=== PATIENT | male | born 1970 | race Caucasian/White ===

== ENCOUNTER 2025-07-17 16:03 | Emergency (ER) | payer MEDICAID, SELFPAY ==
--- OUTSIDE RECORDS SUMMARY | 2025-06-23 09:50 | XMS_ITS ---
Author Organization [facility] Address [address] [place] [phone] Care Team Providers Care New Accounts Representative Name Role Phone Zhane Marie [phone] REASON FOR VISIT Establish care Social History Sex Assigned At : Social History Observation Description Sex Assigned At Male Encounters Encounter Location Date Provider Diagnosis [facility] [address] [address] 06/23/2025 Zhane Marie Plan Of Treatment No Information Progress Notes * REJI, González SDOB:1970 (54 yo M)Acc No.[id number]:06/23/2025 Progress Notes Patient: González CHAN Provider: Adrián Marie :1970 A ge:54 Y S ex:Male Date:06/23/2025 Address:[place] Subjective: * Chief Complaints: * 1 . Establish care. * Medical History: Objective: * Vitals: Assessment: Plan: * Treatment: * Billing Information: * Visit Code: * Procedure Codes: * Electronic signature of VITA Louis [email or web address] on 07/17/2025 at 04:09 PM CDT Sign off status: Pending * Provider: Adrián Marie Date: 06/23/2025 Generated for Printi ng/Faxing/eTransmitting on: 07/17/2025 04:09 PM CDT
[2025-07-17 16:09] VITALS: BP 94/67; PULSE 79; RESP 18; TEMP 36.6; O2SAT 95; BMI 37.2
--- OUTSIDE RECORDS SUMMARY | 2025-07-17 16:09 | XMS_ITS | Encounter Summary ---
Author Organization [facility] Address [address] [place] [address] Care Team Providers Care Vasc Tech Name Role Phone Artem Bliss MD Primary Care Provider [phone] Reason for Visit * Reason Comments Provider Call Encounter Details Date Type Department Care Team (Late st Contact Info) Description 01/30/2025 Telephone [facility] Medicine- [address] [place] [address] Padmini Raysa Adilia, STATIONARY STEAM ENGINEER [address] [facility] [address] [place] [address] Provider Call Social History Tobacco Use Types Packs/Day Years Used Date Smoking Tobacco: Former Cigarettes 1.5 5 0 11/06/2013 - 11/06/2018 Smokeless Tobacco: Current Chew Alcohol Use Standard Drinks/Week Comments No 0 (1 standard drink = 0.6 oz pur e alcohol) Feeling Safe Answer Date Recorded Are you in a relationship wi th someone who hurts you emotionally and/or physically? 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 Topic: Ffiwmcbz-Go-Dfmpwztl Call >> Jan 30, 2025 3:05 PM Claudine James wrote: Caller is requesting to speak with Clinical Care Team. Caller Name: Mirian ([facility]) Callback Number: [phone] Clinician Type: Home Health Co-worker Call Notes: Caller states that she would like to let the patient's care team that he has 3-4 pitting edema on his right leg and at least 3+ pitting edema on his left leg. She also reports that he hashad increased swelling in his feet since his spironolactone was discontinued. Caller would like a call back please. Is this addressing an immediate patient care need? No documented in this encounter Plan of Treatment Upcoming Encounters Date Type Department Care Team (Late st Contact Info) Description 08/04/2025 2:00 PM CDT App[facility]ment [facility] [address] [place] [address] Suzette Bernardo DO [address] [place] [address] 08/04/2025 2:00 PM CDT Appointment [facility] Oncology [facility] [address] [place] [address] Suzette Bernardo DO [address] [place] [phone] 080- 08/07/2025 1:20 PM CDT Office Visit [facility] Cancer and H[facility] [place] [address] [place] [address] Suzette Bernardo, DO [address] [place] [address] 09/26/2025 11:00 AM INFORMATION DEVELOPER Office Visit [facility] [address] [address] Luz Elena Gallagher, [facility] [address] [address] documented as of this encounter Visit Diagnoses Not on filedocumented in this encounter Care Teams Vasc Tech Relationship Specialty Start Date End Date Artem Bliss MD [address] [address] PCP - General Family Practice 03/12/25 documented as of this encounter
--- OUTSIDE RECORDS SUMMARY | 2025-07-17 16:09 | XMS_ITS | Patient Health Record ---
Author Organization [facility] Address [address] [address] Care Team Providers Care Incident Response Coordinator Name Role Phone Zhane Marie Unavailable [phone] Allergies No Known Allergies Results Component Value Reference Range Notes TSH W/REFLEX TO FT4 (53239) Reviewed date:07/05/2025 03:30:06 PM Interpretation: Performing Lab:[facility] Amna-[id number] [address], LcepscAT[address] Denisse Chen MD Notes/Report: 0 0 0 0 0 0 0 TSH W/REFLEX TO FT4 1.64 0.40-4.50 mIU/L HEMOGLOBIN A1c (496) Reviewed date:07/05/2025 03:30:06 PM Interpretation: Performing Lab:[facility] ENRIQUEZ-Dluxux13946 Roxana Talavera[address] Denisse Chen MD Notes/Report: 0 0 0 0 0 0 0 HEMOGLOBIN A1c 5.8 <5.7 % For someone without known diabetes, a hemoglobin A1c value between 5.7% and 6.4% is consistent with prediabetes and should be confirmed with a follow-up test. For someone with known diabetes, a value <7% indicates that their diabetes is well controlled. A1c targets should be individualized based on duration of diabetes, age, comorbid conditions, and other considerations. This assay result is consistent with an increased risk of diabetes. Currently, no consensus exists regarding use of hemoglobin A1c for diagnosis of diabetes for children. CBC (INCLUDES DIFF/PLT) (099 9) Reviewed date:07/05/2025 03:30:06 PM Interpretation: Performing Lab:[facility]-[id number] [address], HqfhreUV[address] Denisse Chen MD Notes/Report: 0 0 0 0 0 0 0 WHITE BLOOD CELL COUNT 5.6 3.8-10.8 Thousand/ uL RED BLOOD CELL COUNT 4.86 4.20-5.80 Million/uL HEMOGLOBIN 14.7 13.2-17.1 g/dL HEMATOCRIT 44.4 38.5-50.0 % MCV 91.4 80.0-100.0 fL MCH 30.2 27.0-33.0 pg MCHC 33.1 32.0-36.0 g/dL For adults, a slight decrease in the calculated MCHC value (in the range of 30 to 32 g/dL) is most likely not clinically significant; however, it should be interpreted with caution in correlation with other red cell parameters and the patient's clinical condition. RDW 14.4 11.0-15.0 % PLATELET COUNT 183 140-400 Thousand/uL MPV 10.6 7.5-12.5 fL ABSOLUTE NEUTROPHILS 3993 2203-5307 cells/uL ABSOLUTE LYMPHOCYTES 5667 657-0144 cells/uL ABSOLUTE MONOCYTES 252 200-950 cells/uL ABSOLUTE EOSINOPHILS 28 15-500 cells/uL ABSOLUTE BASOPHILS 22 0-200 cells/uL NEUTROPHILS 71.3 LYMPHOCYTES 23.3 MONOCYTES 4.5 EOSINOPHILS 0.5 BASOPHILS 0.4 COMPREHENSIVE METABOLIC PANE (85676) Reviewed date:07/05/2025 03:30:06 PM Interpretation: Performing Lab:[facility] ENRIQUEZ-Hemthh03823 [address], BebmjrYJ[address] Denisse Chen MD Notes/Report: 0 0 0 0 0 0 0 GLUCOSE 105 65-99 mg/dL Fasting reference interval For someone without known diabetes, a glucose value between 100 and 125 mg/dL is consistent with prediabetes and should be confirmed with a follow-up test. UREA NITROGEN (BUN) 17 7-25 mg/dL CREATININE 0.91 0.70-1.30 mg/dL EGFR 101 > OR = 60 mL/min/1.73m2 BUN/CREATININE RATIO SEE NOTE: 6-22 (calc) Not Reported: BUN and Creatinine are within reference range. SODIUM 138 135-146 mmol/L POTASSIUM 4.1 3.5-5.3 mmol/L CHLORIDE 104 98-110 mmol/L CARBON DIOXIDE 25 20-32 mmol/L CALCIUM 9.1 8.6-10.3 mg/dL PROTEIN, TOTAL 7.0 6.1-8.1 g/dL ALBUMIN 4.2 3.6-5.1 g/dL GLOBULIN 2.8 1.9-3.7 g/dL (calc) ALBUMIN/GLOBULIN RATIO 1.5 1.0-2.5 (calc) BILIRUBIN, TOTAL 0.4 0.2-1.2 mg/dL ALKALINE PHOSPHATASE 104 35-144 U/L AST 11 10-35 U/L ALT 17 9-46 U/L IRON, TIBC AND FERRITIN PANE L (5616) Reviewed date:07/05/2025 03:30:06 PM Interpretation: Performing Lab:[facility]-[id number] [address] Jo, VydifgSR[address] Denisse Chen MD Notes/Report: 0 0 0 0 0 0 0 IRON, TOTAL 75 50-180 mcg/dL IRON BINDING CAPACITY 290 250-425 mcg/dL (angelique c) % SATURATION 26 20-48 % (calc) FERRITIN 185 38-380 ng/mL ALBUMIN, RANDOM URINE W/CREA TININE (6517) Reviewed date:07/05/2025 03:30:06 PM Interpretation: Performing Lab:[facility] Amna-[id number] [address] [id number] Denisse Chen MD Notes/Report: 0 0 0 0 0 0 0 CREATININE, RANDOM URINE 77 20-320 mg/dL ALBUMIN, URINE <0.2 See Note: mg/dL Reference Range: Reference Range Not established ALBUMIN/CREATININE RATIO, RANDOM URINE NOTE <30 mg/g creat NOTE: The urine albumin value is less than 0.2 mg/dL therefore we are unable to calculate excretion and/or creatinine ratio. The ADA defines abnormalities in albumin excretion as follows: Albuminuria Category Result (mg/g creatinine) Normal to Mildly increased <30 Moderately increased 30-299 Severely increased > OR = 300 The ADA recommends that at least two of three specimens collected within a 3-6 month period be abnormal before considering a patient to be within a diagnostic category. LIPID PANEL, STANDARD (5030) Reviewed date:07/05/2025 03:30:06 PM Interpretation: Performing Lab:[place], [facility]-[id number], AgdsooFR[address] Denisse Chen MD Notes/Report: 0 0 0 0 0 0 0 CHOLESTEROL, TOTAL 86 <200 mg/dL HDL CHOLESTEROL 36 > OR = 40 mg/dL TRIGLYCERIDES 162 <150 mg/dL LDL-CHOLESTEROL 26 Reference range: <100 Desirable range <100 mg/dL for primary prevention; <70 mg/dL for patients with CHD or diabetic patients with > or = 2 CHD risk factors. LDL-C is now calculated using the Christopher-Lazo calculation, which is a validated novel method providing better accuracy than the Friedewald equation in the estimation of LDL-C. Christopher SS et al. ZARIA. 2013;310(26): 2445-2338 (http://education.Babybe/faq/DLY873) CHOL/HDLC RATIO 2.4 <5.0 (calc) NON HDL CHOLESTEROL 50 <130 mg/dL (calc) For patients with diabetes plus 1 major ASCVD risk factor, treating to a non-HDL-C goal of <100 mg/dL (LDL-C of <70 mg/dL) is considered a therapeutic option. Reason For Referral Reason [facility] cardiology Diagnosis 1 Hypertensive heart d isease with congestive heart failure, unspecified heart failure type (I11.0) Referral [facility] [facility] Referring Provider First Name Zhane Referring Provider Last Name Burns Referring Provider [facility] Referred Provider [facility] Notes Lissette De Los Santos 2024 08:31:12 AM >Insurance and ID attached. Waiting on lab report prior to faxing.Filiberto Wendy 07/08/2025 10:57:59 AM >Labs attached. Referral faxed.Filiberto Wendy 07/16/2025 11:34:21 AM >Attempt TC to [facility] Cardio. Left message to return my call.Filiberto Wendy 07/16/2025 02:21:41 PM >TC from Leann reyes/ [facility] Heart & Lung. Message left they've tried to call pt w/ no returned call.Filiberto Wendy 07/16/2025 02:24:09 PM >TC to pt. Provided him the number to [facility] Cardio to call and schedule the appt.Filiberto Wendy 07/17/2025 03:45:41 PM >TC to Alexandra reyes/ [facility] support. Confirmed appt 09/04/25 at 2:30 pm. Pt notified of appt by their clinic. Referral Priority Routine Referral Appointment Date 09/04/2025 Medications Medication SIG (Take, Route, Frequency, Duration) Notes Start Date End Date Status tiZANidine HCl 4 MG 1 tablet at bedtime as needed Orally every 8 hours Active GaviLyte-N with Flavor Pack 420 GM MIX ACCORDING TO INSTRUCTION THEN DRINK 1/2 THE EVENING PRIOR TO PROCEDURE AND REMAINING 1/2 THE MORNING OF PROCEDURE. MUST BE COMPLETED 2 HOURS BEFORE PROCEDURE. Oral; Duration: 2 Days Not-Taking SEROquel 100 MG 1 tablet Orally at bedtime Active Symbicort 160-4.5 MCG/ACT 2 puffs Inhalation twice a day; Duration: 30 days Active Pantoprazole Sodium 40 MG TAKE 1 TABLET BY MOUTH ONCE DAILY Oral; Duration: 30 Days Active Albuterol Sulfate HFA 108 (90 Base) MCG/ACT 2 puff as needed for cough/wheezing/or congestin Inhalation every 4 hrs; Duration: 30 days As needed Active Potassium Chloride ER 10 MEQ TAKE 4 CAPSULES BY MOUTH 2 TIMES DAILY Oral; Duration: 30 Days Active traZODone HCl 50 MG TAKE 1 TABLET BY MOUTH AT BEDTIME NEEDED FOR SLEEP DISTURBANCE Oral; Duration: 30 Days Not-Taking Dexcom G7 Sensor - FOR CONTINUOUS BLOOD GLUCOSE MONITORING. CHANGE EVERY 10 DAYS.; Duration: 30 days Active metFORMIN HCl 500 MG TAKE 1 TABLETS BY MOUTH TWICE DAILY WITH MEALS Oral Active FeroSul 325 (65 Fe) MG 1 tablet Orally daily; Duration: 30 days Active Metoprolol Succinate ER 25 MG TAKE 1 TABLET BY MOUTH ONCE DAILY Oral; Duration: 30 Days Active Furosemide 40 MG TAKE 1 TABLET BY MOUTH ONCE DAILY Oral; Duration: 30 Days Active Insulin Lispro (1 Unit Dial) 100 UNIT/ML as directed Subcutaneous 3 times a day before meals; Duration: 30 days As needed Blood glucose: 151-200 Give 1 unit subcutaneous 201-250 Give 2 units subcutaneous 251-300 Give 3 units subcutaneous 301-350 Give 4 units subcutaneous 351-400 Give 6 units subcutaneous MDD 25 units Active hydrOXYzine HCl 50 MG TAKE 1 TABLET BY MOUTH THREE TIMES DAILY NEEDED Oral; Duration: 30 Days Active Narcan 4 MG/0.1ML as directed Nasally Active Ranolazine ER 500 MG TAKE 1 TABLET BY MOUTH EVERY 12 HOURS Oral; Duration: 30 Days Active Albuterol Sulfate (2.5 MG/3ML) 0.083% 3 mL as needed Inhalation every 6 hrs As needed Active risperiDONE 1 MG TAKE 1 TABLET BY MOUTH TWICE DAILY Oral; Duration: 30 Days Active Sertraline HCl 100 MG 2 tablets Oral daily; Duration: 30 days Active Ondansetron 4 MG 1 tablet on the tongue and allow to dissolve Orally every 8 hours As needed Active traZODone HCl 100 MG TAKE 1 TABLET BY MOUTH AT BEDTIME Oral; Duration: 30 Days Active Pregabalin 100 MG TAKE 1 CAPSULE BY MOUTH EVERY 12 HOURS Oral; Duration: 30 Days Active Dicyclomine HCl 20 MG 1 tablet Orally 4 times a daily before meals and at bedtime Active clonazePAM 0.5 MG 1 tablet Orally twice a day Active Trulicity 4.5 MG/0.5ML INJECT 1 ONCE A WEEK Subcutaneous; Duration: 30 days [facility] Active Dexcom G7 Solar Energy Advisor - USE DIRECTED FOR CONTINUOUS BLOOD GLUCOSE MONITORING; Duration: 15 Days Active Ascorbic Acid 250 MG 1 tablet Orally Onc e a day Active Glucagon 3 MG/DOSE as directed for low blood sugar Nasally 06/23/2025 Active Atorvastatin Calcium 80 MG TAKE 1 TABLET BY MOUTH ONCE DAILY IN THE EVENING Oral; Duration: 30 Days Active OneTouch Ultra Test - USE 1 STRIP TO FLO CK GLUCOSE THREE TIMES DAILY In Vitro; Duration: 34 Days Active Eliquis 5 MG TAKE 1 TABLET BY MOUTH TWICE DAILY Oral; Duration: 30 Days Active traMADol HCl 50 MG TAKE 1 TABLET BY MOUTH EVERY 8 HOURS NEEDED FOR PAIN Oral; Duration: 10 Days Active ARIPiprazole 20 MG TAKE 1 TABLET BY MOUTH AT BEDTIME FOR DEPRESSION Oral; Duration: 30 Days Active Pentips Generic Pen Burd[place] 31G X 5 MM 1 FIVE TIMES DAILY WITH INSULIN; Duration: 20 Days Active Farxiga 10 MG TAKE 1 TABLET BY MOUTH ONCE DAILY Oral Active Fenofibrate 145 MG 1 tablet Orally Once a day Active DULoxetine HCl 30 MG 1 capsule Orally twice a day Active EPINEPHrine 0.3 MG/0.3ML INJECT CONTENTS OF 1 PEN NEEDED FOR ALLERGIC REACTION Injection; Duration: 2 Days Active Social History Tobacco Use: Social History Observation Description Date Details (start date - stop date) Unknown Sex Assigned At : Social History Observation Description Sex Assigned At Male Tobacco Control (Standard) Question Answer Notes Tobacco use: Uses tobacco in other forms Additional Findings: Tobacco user Chews tobacco Problems Problem Type SNOMED Code ICD Code Onset Dates Problem Status W/U Status Risk Notes Problem Peripheral circulatory disorder associated with diabetes mellitus (878873633) Type 2 diabetes mellitus with other circulatory complications (E11.59) Active confirmed Problem Long-term current use of insulin (438514080) 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) Active confirmed Problem Exacerbation of intermittent asthma (945042161) Mild intermittent asthma with exacerbation (J45.21) Active confirmed Problem Iron deficiency anemia (62561922) Iron deficiency anemia, unspecified iron deficiency anemia type (D50.9) Active confirmed Problem Hypertensive heart failure (53807399) Hypertensive heart disease with congestive heart failure, unspecified heart failure type (I11.0) Active confirmed Problem Heart failure (36502247) Chronic congestive heart failure, unspecified heart failure type (I50.9) Active confirmed Vital Signs Heart Rate 78 /min 07/17/2025 Temperature 97.1 degrees Fahrenheit 07/17/2025 Oximetry 98 % 07/17/2025 Blood pressure diastolic 78 mm Hg 07/17/2025 Weight-kg 95.44 kg 07/17/2025 Blood pressure systolic 122 mm Hg 07/17/2025 Weight 210.4 lbs 07/17/2025 Encounters Encounter Location Date Provider Diagnosis [facility] [employer] [facility] [address] [place] [address] 07/17/2025 Zhane Marie [facility] [employer] [facility] [address] [place] [address] 06/23/2025 Zhane Marie Acute URI J06.9 ; Ty pe 2 diabetes mellitus with other circulatory complications E11.59 ; 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 Z79.4 and Chronic congestive heart failure, unspecified heart failure type I50.9 [facility] [employer] [facility] [address] [place] [address] 06/24/2025 Zhane Marie Hypertensive heart disease with congestive heart failure, unspecified heart failure type I11.0 ; Type 2 diabetes mellitus with other circulatory complications E11.59 ; Chronic congestive heart failure, unspecified heart failure type I50.9 ; Acute URI J06.9 ; skilled nursing (current) use of insulin Z79.4 ; Mild intermittent asthma with exacerbation J45.21 and Iron deficiency anemia, unspecified iron deficiency anemia type D50.[address] [address] 07/02/2025 Zhane Marie Type 2 diabetes mellitus with other circulatory complications E11.59 and Iron deficiency anemia, unspecified iron deficiency anemia type D50.[address] [address] 06/25/2025 Zhane Marie Type 2 diabetes mellitus with other circulatory complications E11.59 Assessments Encounter Date Diagnosis (ICD Code) Assessment Notes Treatment Notes Treatment Clinical Notes Section Notes 06/23/2025 Type 2 diabetes mellitus with other circulatory complications (ICD-10 - E11.59) 06/23/2025 Acute URI (ICD-10 - J06.9) 06/24/2025 Type 2 diabetes mellitus with other circulatory complications (ICD-10 - E11.59) 06/24/2025 Hypertensive heart disease with congestive heart failure, unspecified heart failure type (ICD-10 - I11.0) 06/25/2025 Type 2 diabetes mellitus with other circulatory complications (ICD-10 - E11.59) 07/02/2025 Type 2 diabetes mellitus with other circulatory complications (ICD-10 - E11.59) labs drawn by Kristine Linder LPN 07/02/2025 Iron deficiency anemia, unspecified iron deficiency anemia type (ICD-10 - D50.9) 06/24/2025 Chronic congestive heart failure, unspecified heart failure type (ICD-10 - I50.9) 06/23/2025 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 Hold the Toujeo since his blood sugars have been running so low 06/24/2025 Other He has lost about 50 pounds in the past 8 months. We will discontinue his Toujeo We will decrease his sliding scale to low-dose May need to decrease his furosemide if lightheadedness and/or low blood pressure is a problem. He will follow-up with oncology due to his history of colon cancer He will follow-up with [facility] for his psychiatric care He wishes to have his diabetes managed here in his primary care clinic We we will refer him to cardiology Plan Of Treatment No Information Insurance Providers Payer Name Payer Address Payer Phone Subscriber Number Group Number Insured Name Patient Relationship to Insured Coverage Start Date Coverage End Date Medicaid [address] [place] [address] [id number] González Mendoza Self - patient is the insured 5 Medical (General) History Medical History History ICD Code diabetes heart failure. 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 Agnes blum manages asthma hx of PE x2 colon cancer 2019 bowel resection and ch emo. [facility] q6[facility] [place] in 30s anemia since 2022. oncology follows glaucoma. dr vila neuropathy
--- OUTSIDE RECORDS SUMMARY | 2025-07-17 16:09 | XMS_ITS | Encounter Summary ---
Author Organization [facility] Address [address] [place] [address] Care Team Providers Care Chin Strap Cutter Name Role Phone Perla Maradiaga MD, Irineo Amanda Primary Care Provider +1- [phone] Encounter Details Date Type Department Care Team (Late st Contact Info) Description 08/31/2008 Outpatient Historical HIS IN BED Sj Ed, Physician NO ADDRESS ON FILE Keenan Brown MD NO ADDRESS ON FILE Janet Watts MD [address] [facility] [address] [place] [address] Syncope and Collapse; DM w/o Complication Type II (CMS/HCC); No Proc/Contraindication Social History Tobacco Use Types Packs/Day Years Used Date Smoking Tobacco: Never Assessed Sex and Gender Information Value Date Recorded Sex Assigned at Not on file 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 Gender Identity Not on file Sexual Orientation Not on file documented as of this encounter Plan of Treatment Not on file documented as of this encounter Procedures Procedure Name Priority Date/Time Associated Diagnosis Comments CARDIAC ENZYMES Routine 09/01/2008 2:00 AM CDT CARDIAC ENZYMES Routine 08/31/2008 8:39 PM CDT XR CHEST PA OR AP 1 VW Routine 08/31/2008 2:[address] HEAD WO CONTRAST Routine 08/31/2008 2 :11 PM CDT CARDIAC ENZYMES Stat 08/31/2008 1:55 PM CDT CBC WITH DIFFERENTIAL Stat 08/31/2008 1:55 PM CDT PTT Stat 08/31/2008 1:55 PM CDT PROTIME-INR Stat 08/31/2008 1:55 PM CDT BASIC METABOLIC PANEL Stat 08/31/2008 1:55 PM CDT documented in this encounter Results * CARDIAC ENZYMES (09/01/2008 2:00 AM CDT) CKMB 1.7 0.0 - 5.0 ng/mL [facility] TROPONIN I <0.1 0.0 - 1.3 ng/mL [facility] Blood specimen (specimen) 09/01/2008 2:00 AM CDT 09/01/2008 2:28 AM CDT Keenan Brown MD CHEMISTRY ORDERABLES Final Result INTERFACE SYSTEM Refer to clinic/hospital department [facility]# [id number] [address] [place] [address] * CARDIAC ENZYMES (08/31/2008 8:39 PM CDT) CKMB 1.6 0.0 - 5.0 ng/mL [facility] TROPONIN I <0.1 0.0 - 1.3 ng/mL [facility] Blood specimen (specimen) 08/31/2008 8:39 PM CDT 08/31/2008 8:39 PM CDT Keenan Brown MD CHEMISTRY ORDERABLES Final Result INTERFACE SYSTEM Refer to clinic/hospital department [facility] CLIA# [id number] Critical access hospital [place] [address] * XR CHEST PA OR AP (08/31/2008 2:29 PM CDT) Anatomical Region Laterality Modality Chest Other 08/31/2008 2:29 PM CDT Narrative 08/31/2008 2:51 PM CDT A portable chest at 1417 was obtained. Heart size is normal. There is no pneumothorax and no focal airspace opacity or effusion. Vascularity is within normal limits. Incidental note is made of a medical and scientific illustrator in the patient's left breast pocket. Impression: No active pulmonary disease. - Dictated By: Eva Kramer M.D. Electronically Signed By: Eva Kramer M.D. Date Signed: 08/31/08 Procedure Note Eva Kramer - 08/31/2008 A portable chest at 1417 was obtained. Heart size is normal. There is no pneumothorax and no focal airspaceopacity or effusion. Vascularity is within normal limits. Incidental note is made of a medical and scientific illustrator in thepatient's left breast pocket. Impression: No active pulmonary disease. - Dictated By: Eva Kramer M.D. Electronically Signed By: Eva Kramer M.D. Date Signed: 08/31/08 Keenan Brown MD DIAGNOSTIC IMAGING ORDERAB LES Final Result * CT HEAD WO CONTRAST (08/31/2008 2:11 PM CDT) Anatomical Region Laterality Modality Head Other 08/31/2008 2:11 PM CDT Narrative 08/31/2008 2:[address] was performed without contrast. There is no acute hemorrhage or extra-axial fluid and there is no edema or mass effect. The ventricular size is appropriate. Patchy mucosal thickening is noted in the maxillary and ethmoidal sinuses. The mastoid air cells are clear and the bony calvarium is intact. Impression: Sinus disease. Otherwise no acute abnormality. - Dictated By: Eva Kramer M.D. Electronically Signed By: Eva Kramer M.D. Date Signed: 08/31/08 Procedure Note Eva Kramer - 08/31/[address] was performed without contrast. There is no acute hemorrhage or extra-axial fluid and there is no edema ormass effect. The ventricular size is appropriate. Patchy mucosal thickening is noted in the maxillaryand ethmoidal sinuses. The mastoid air cells are clear and the bony calvarium is intact. Impression: Sinus disease. Otherwise no acute abnormality. - Dictated By: Eva Kramer M.D. Electronically Signed By: Eva Kramer M.D. Date Signed: 08/31/08 us Keenan Brown MD CT ORDERABLES Final Resu lt * BASIC METABOLIC PANEL (08/31/2008 1:55 PM CDT) POTASSIUM 3.9 3.5 - 5.0 mEq/L [facility] OSMOLALITY, CALCULATED 288 275 - 295 mOsm/Kg [facility] CREATININE 0.9 0.7 - 1.5 mg/dL [facility] CALCIUM 10.2 8.4 - 10.5 mg/dL [facility] GLUCOSE 96 70 - 110 mg/dL [facility] CHLORIDE 107 95 - 110 mEq/L [facility] ANION GAP 9 9 - 20 mEq/L [facility] SODIUM 140 136 - 145 mEq/L [facility] BUN 15 9 - 20 mg/dL [facility] CO2 28 22 - 32 mmol/l [facility] Blood specimen (specimen) 08/31/2008 1:55 PM CDT 08/31/2008 2:02 PM CDT us Keenan Brown MD CHEMISTRY ORDERABLES Final Result INTERFACE SYSTEM Refer to clinic/hospital department [facility] CLIA# [id number] [address] [facility] [place] [address] * (ABNORMAL) CBC WITH DIFFERENTIAL (08/31/2008 1:55 PM CDT) WBC 6.6 4.5 - 11.0 K/ul [facility] MCH 30.5 27.0 - 34.0 pg [facility] NEUTROPHIL ABSOLUTE 4.1 2.0 - 8.0 K/ul [facility] NEUTROPHILS 62.4 42.2 - 75.2 % [facility] HEMATOCRIT 44.3 41.0 - 53.0 % [facility] EOSINOPHILS 0.8 0.0 - 7.0 % [facility] PLATELETS 200 140 - 440 K/ul [facility] EOSINOPHIL ABSOLUTE 0.1 0.0 - 0.7 K/ul [facility] RBC 5.15 4.60 - 6.20 Mil/ul [facility] LYMPHOCYTES 29.0 24.0 - 44.0 % [facility] MCHC 35.4(H) 30.0 - 35.0 g/dL [facility] LYMPHOCYTE ABSOLUTE 1.9 1.2 - 4.0 K/ul [facility] MCV 86.0 84.0 - 103.0 Fl [facility] MPV 11.1 8.9 - 12.8 Fl [facility] BASOPHILS ABSOLUTE 0.0 0.0 - 0.2 K/ul [facility] BASOPHILS 0.2 0.0 - 1.0 % [facility] HEMOGLOBIN 15.7 14.0 - 18.0 g/dL [facility] RDW 13.0 11.0 - 14.5 % [facility] MONOCYTE ABSOLUTE 0.5 0.1 - 0.6 K/ul [facility] MONOCYTES 7.6 2.0 - 10.0 % [facility] Blood specimen (specimen) 08/31/2008 1:55 PM CDT 08/31/2008 2:02 PM CDT Keenan Brown MD HEMATOLOGY ORDERABLES Elva l Result Performing Organization Address [facility] de Phone Number INTERFACE SYSTEM Refer to clinic/hospital department [facility] CLIA# [id number] [facility] [place] [address] * PTT (08/31/2008 1:55 PM CDT) PTT 27.5 22.5 - 36.5 Secs [facility] Comment: Therapeutic Range: Hi-level PE/DVT heparin protocol 80.1 -95.0 sec Lo-level PE/DVT heparin protocol 67.1 - 80.0 sec Cardiac Heparin Protocol 67.1 - 85.0 sec Neuro Heparin Protocol 67.1 - 80.0 sec As of 01/24/2008 note change in APTT Normal Range. Blood specimen (specimen) 08/31/2008 1:55 PM CDT 08/31/2008 2:02 PM CDT Keenan Brown MD HEMATOLOGY ORDERABLES Elva l Result Performing Organization Address [facility] Phone Number INTERFACE SYSTEM Refer to clinic/hospital department [facility] CLIA# [id number] [address] [place] [address] * PROTIME-INR (08/31/2008 1:55 PM CDT) PROTIME 13.6 12.8 - 15.8 Secs [facility] Comment:As of 2007 not e change in normal range. INR 0.9 [facility] Comment: Expected Values for INR: DVT/PE Goal INR 2.5; range 2.0 - 3.0 Valve Replacement Tissue Goal INR 2.5; range 2.0 - 3.0 Mechanical Goal INR 3.0; range 2.5 - 3.5 POST-NM Goal INR 2.5; range 2.0 - 3.0 or Goal 3.0; range 2.5 - 3.5 Atrial Fibrillation Goal INR 2.5; range 2.0 - 3.0 Ischemic Stroke Goal INR 2.5; range 2.0 - 3.0 For additional information see Guidelines for Anticoagulation available from the pharmacy [facility]. [phone] Blood specimen (specimen) 08/31/2008 1:55 PM CDT 08/31/2008 2:02 PM CDT us Keenan Brown MD HEMATOLOGY ORDERABLES Elva l Result Performing Organization Address [facility] Phone Number INTERFACE SYSTEM Refer to clinic/hospital department [facility] CLIA# [id number] [address] [place] [address] * CARDIAC ENZYMES (08/31/2008 1:55 PM CDT) CKMB 1.8 0.0 - 5.0 ng/mL [facility] TROPONIN I <0.1 0.0 - 1.3 ng/mL [facility] Blood specimen (specimen) 08/31/2008 1:55 PM CDT 08/31/2008 2:02 PM CDT us Keenan Brown MD CHEMISTRY ORDERABLES Final Result Performing Organization Address [facility] Number INTERFACE SYSTEM Refer to clinic/[facility] CLIA# [id number] [address] [place] [address] documented in this encounter Visit Diagnoses Diagnosis Syncope and collapse Type II or unspecified type diabetes mellitus without mention of complication, not stated as uncontrolled Surgical or other procedure not carried out because of contraindication documented in this encounter Additional Health Concerns Infection Onset Date Last Indicated Resolved Time C Diff 06/26/2020 06/26/2020 08/25/2020 8:08 PM CDT R/O COVID-19 09/11/2020 09/11/2020 09/11/2020 10:5 3 AM ASSOCIATE PROGRAMMER ANALYST R/O COVID-19 11/17/2020 11/17/2020 11/17/2020 4:58 PM ASSOCIATE PROGRAMMER ANALYST documented as of this encounter Care Teams Chin Strap Cutter Relationship Specialty Start Date End Date Irineo Duncan Jr., MD [address] [place] [address] [address] [facility] [address] [place] [phone] PCP - General Family Practice 06/20/19 documented as of this encounter
--- OUTSIDE RECORDS SUMMARY | 2025-07-17 16:09 | XMS_ITS | Encounter Summary ---
Author Organization [facility] Address [address] [place] [address] Care Team Providers Care Slurry Blender Name Role Phone Perla Maradiaga MD, Irineo Amanda Primary Care Provider [phone]- [phone] Encounter Details Date Type Department Care Team (Latest Contact Info) Description 08/22/2008 Outpatient Historical [facility] Cardiac Retread Mold Operator [address] [place] [address] Janet Watts MD [address] [facility] [address] [place] [address] Syncope and Collapse Social History Tobacco Use Types Packs/Day Years Used Date Smoking Tobacco: Never Assessed Sex and Gender Information Value Date Recorded Sex Assigned at Not on file Legal Sex Male 6:57 AM CELLAR HAND Gender Identity Not on file Sexual Orientation Not on file documented as of this encounter Plan of Treatment Not on file documented as of this encounter Procedures Procedure Name Priority Date/Time Associated Diagnosis Comments PT AND APTT Stat 08/27/2008 6:57 AM CDT CBC WITHOUT DIFFERENTIAL Stat 08/27/2008 6:57 AM CDT BASIC METABOLIC PANEL Stat 08/27/2008 6:57 AM CDT documented in this encounter Results * BASIC METABOLIC PANEL (08/27/2008 6:57 AM CDT) Pathologist [facility] POTASSIUM 4.1 3.5 - 5.0 mEq/L [facility] Comment: Specimen slightly hemolyzed OSMOLALITY, CALCULATED 288 275 - 295 mOsm/Kg [facility] CREATININE 1.0 0.7 - 1.5 mg/dL [facility] CALCIUM 9.4 8.4 - 10.5 mg/dL [facility] GLUCOSE 98 70 - 110 mg/dL [facility] CHLORIDE 108 95 - 110 mEq/L [facility] ANION GAP 10 9 - 20 mEq/L [facility] SODIUM 140 136 - 145 mEq/L [facility] BUN 14 9 - 20 mg/dL [facility] CO2 26 22 - 32 mmol/l [facility] Blood specimen (specimen) 08/27/2008 6:57 AM CDT 08/27/2008 6:57 AM CDT us Janet Watts MD CHEMISTRY ORDERABLES Final Re sult INTERFACE SYSTEM Refer to clinic/hospital department [facility] CLIA# [id number] [address] [place] [address] * CBC WITHOUT DIFFERENTIAL (08/27/2008 6:57 AM CDT) Pathologist [facility] WBC 7.9 4.5 - 11.0 K/ul [facility] HEMATOCRIT 41.0 41.0 - 53.0 % [facility] RBC 4.77 4.60 - 6.20 Mil/ul [facility] PLATELETS 187 140 - 440 K/ul [facility] HEMOGLOBIN 14.5 14.0 - 18.0 g/dL [facility] Blood specimen (specimen) 08/27/2008 6:57 AM CDT 08/27/2008 6:57 AM CDT us Janet Watts MD HEMATOLOGY ORDERABLES Final R esult Performing Organization Address City/[facility] Co de Phone Number INTERFACE SYSTEM Refer to clinic/hospital department [facility] CLIA# [id number] [address] [place] [address] * (ABNORMAL) PT AND APTT (08/27/2008 6:57 AM CDT) PROTIME 12.6(L) 12.8 - 15.8 Secs [facility] Comment:As of 2007 not e change in normal range. INR 0.8 [facility] Comment: Expected Values for INR: DVT/PE Goal INR 2.5; range 2.0 - 3.0 Valve Replacement Tissue Goal INR 2.5; range 2.0 - 3.0 Mechanical Goal INR 3.0; range 2.5 - 3.5 POST-PA Goal INR 2.5; range 2.0 - 3.0 or Goal 3.0; range 2.5 - 3.5 Atrial Fibrillation Goal INR 2.5; range 2.0 - 3.0 Ischemic Stroke Goal INR 2.5; range 2.0 - 3.0 For additional information see Guidelines for Anticoagulation available from the pharmacy [facility]. [phone] PTT 27.3 22.5 - 36.5 Secs [facility] Comment: Therapeutic Range: Hi-level PE/DVT heparin protocol 80.1 -95.0 sec Lo-level PE/DVT heparin protocol 67.1 - 80.0 sec Cardiac Heparin Protocol 67.1 - 85.0 sec Neuro Heparin Protocol 67.1 - 80.0 sec As of 01/24/2008 note change in APTT Normal Range. Blood specimen (specimen) 08/27/2008 6:57 AM CDT 08/27/2008 6:57 AM CDT us Janet Watts MD HEMATOLOGY ORDERABLES Edited Performing Organization Address City/[facility] Co de Phone Number INTERFACE SYSTEM Refer to clinic/hospital department [facility] CLIA# [id number] [address] [place] [address] documented in this encounter Visit Diagnoses Diagnosis Syncope and collapse documented in this encounter Additional Health Concerns Infection Onset Date Last Indicated Resolved Time C Diff 06/26/2020 06/26/2020 08/25/2020 8:08 PM CDT R/O COVID-19 09/11/2020 09/11/2020 09/11/2020 10:5 3 AM CELLAR HAND R/O COVID-11/17/2020 11/17/2020 11/17/2020 4:58 PM CELLAR HAND documented as of this encounter Care Teams Slurry Blender Relationship Specialty Start Date End Date Irineo Duncan Jr., MD [address] [place] [address] [address] [place] [phone] PCP - General Family Practice 06/20/19 documented as of this encounter
--- OUTSIDE RECORDS SUMMARY | 2025-07-17 16:09 | XMS_ITS | Encounter Summary ---
Author Organization [facility] Address 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 Topic: [id number] Call >> Aug 07, 2024 2:33 PM Viviane Nazario wrote: Caller is requesting to speak with Clinical Care Team. Caller Name: [facility] Callback Number: [phone] Clinician Type: Other healthcare professional not listed above Call Notes: [facility] calling regarding pt's C Diff lab. They received stool, but not the correct specimen. They needed un-preserved stool and both had been preserved. They need to know if they need to discard the lab. Is this addressing an immediate patient care need? No documented in this encounter Plan of Treatment Upcoming Encounters Date Type Department Care Team (Late st Contact Info) Description 08/04/2025 2:[address] [facility] [address] [address] Suzette Bernardo, [address] [place] [address] 08/04/2025 2:00 PM CDT Appointment [facility] Oncology [facility] [address], [place] [address] Suzette Bernardo DO [address] [place] [address] 08/07/2025 1:20 PM CDT Office Visit [facility] Cancer and Hematology [place] [address] [place] [address] Suzette Bernardo DO [address] [place] [phone] 09/26/2025 11:00 AM CHIROPRACTIC DOCTOR Office Visit [facility] [address] [place] [address] Luz Elena Gallagher, [facility] [address] [address] documented as of this encounter Visit Diagnoses Not on filedocumented in this encounter Additional Health Concerns Infection Onset Date Last Indicated Resolved Time R/O C. diff 08/05/2024 08/05/2024 08/08/2024 1:05 PM CDT documented as of this encounter Care Teams Software Test Manager Relationship Specialty Start Date End Date Artem Bliss MD [address] [address] PCP - General Family Practice 03/12/25 documented as of this encounter
--- OUTSIDE RECORDS SUMMARY | 2025-07-17 16:09 | XMS_ITS | Encounter Summary ---
Author Organization [facility] Address [address] [place] [address] Care Team Providers Care Bus Analyst Name Role Phone Artem Bliss MD Primary Care Provider [phone] Encounter Details Date Type Department Care Team (Late Contact Info) Description 07/15/2025 External Device Data [facility] ABSTRACTION Provider, Abstract NO ADDRESS ON FILE Social History Tobacco Use Types Packs/Day Years Used Date Smoking Tobacco: Former Cigarettes 1.5 5 0 11/06/2013 - 11/06/2018 Smokeless Tobacco: Current Chew Alcohol Use Standard Drinks/Week Comments No 0 (1 standard drink = 0.6 oz pur e alcohol) Feeling Safe Answer Date Recorded Are you in a relationship wi th someone who hurts you emotionally and/or physically? 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 [address] [place] [address] Suzette Bernardo, DO [address] [place] [address] 08/07/2025 1:20 PM CDT Office Visit [facility] Cancer and Hematology [place] [address] [place] [address] Suzette Bernardo, DO [address] [place] [address] 09/26/2025 11:00 AM HEEL PAINTER Office Visit [facility] Family Medicine [place] [address] [address] Luz Elena Gallagher FNP [address] [address] documented as of this encounter Visit Diagnoses Not on filedocumented in this encounter Care Teams Bus Analyst Relationship Specialty Start Date End Date Artem Bliss MD [address] [address] PCP - General Family Practice 03/12/25 documented as of this encounter
--- OUTSIDE RECORDS SUMMARY | 2025-07-17 16:10 | XMS_ITS | Clinical Summary ---
Author Organization [facility] de Address [address] [place] [address] Phone Care Team Providers Care Cutter Down Name Role Phone Artem Bliss MD Primary Care Provider [phone] Allergies Active Allergy Reactions Criticality Noted Date Comments Bupropion Other (See Comments) 05/14/2019 Dizziness, passing out Iron Sucrose Anaphylaxis High 02/06/2025 Nitroglycerin Anaphylaxis High 07/29/2020 Medications blood sugar diagnostic Strip USE 1 STRIP TO CHECK GLUCOSE bid dx: E11.9 06/30/20 20 Active fenofibrate nanocrystallized (TRICOR) 145 mg tablet Take 145 mg by mouth daily. 05/09/20 20 Active sertraline (ZOLOFT) 100 mg tablet TAKE 1 & 1 2 (ONE & ONE HALF) TABLETS BY MOUTH ONCE DAILY AT BEDTIME 07/21/20 20 Active albuterol sulfate 90 mcg/Actuation inhaler Take 2 Puffs by inhalation every 6 hours as needed for Shortness of Breath. 8.5 Gram 6 04/20/20 20 Active budesonide-formoter oL (SYMBICORT) 160-4.5 mcg/actuation HFA Aerosol Inhaler Take 2 Puffs by inhalation 2 times daily. 1 Gram 6 05/15/20 20 Active clonazePAM (KlonoPIN) 0.5 mg TabletIndications:G AD (generalized anxiety disorder) Take 1 Tablet (0.5 mg) by mouth 2 times daily. 60 Tablet 5 11/11/19 21 Active lancets Use to check BG daily DX: E11.90 100 Each 6 03/09/20 21 Active blood sugar diagnostic (OneTouch Ultra Blue Test Strip) Strip 3 times daily before meals. 100 Each 11 03/31/20 21 Active insulin aspart (NovoLOG) 100 unit/mL injection Inject by subcutaneous injection 4 times daily with meals and at bedtime. Sliding scale Active Lantus Solostar U-100 Insulin 100 unit/mL (3 mL) solution for injection INJECT 10 UNITS SUBCUTANEOUSLY ONCE DAILY AT BEDTIME 15 mL 01/19/20 22 Active Additional Information Patient not taking.Reported on 03/04/2025 Farxiga 10 mg Tablet Take 10 mg by mouth daily. 03/13/20 Active ARIPiprazole (ABILIFY) 20 mg tablet Take 20 mg by mouth daily. 03/16/20 22 Active Narcan 4 mg/actuation [place], Non-Aerosol CALL 911. ADMINISTER A SINGLE SPRAY OF NARCAN IN ONE NOSTRIL. REPEAT EVERY 3 MINUTES NEEDED IF NO OR MINIMAL RESPONSE. 04/11/20 22 Active Dexcom G6 Day Care Provider USE DIRECTED FOR CONTINUOUS BLOOD GLUCOSE MONITORING 05/05/20 22 Active Dexcom G6 Sensor Device G6 Dexcom devise 06/02/20 22 Active simethicone 250 mg Capsule Take 1 Capsule by mouth 2 times daily as needed for Pain. 60 Capsule 6 07/28/20 22 Active Additional Information Patient not taking.Reported on 03/04/2025 Insulin [place], Disposable, (TechLITE Pen Needle) 32 gauge x 5/32 Needle USE FOR LANTUS INJECTION DAILY AT BEDTIME 100 Each 09/05/20 22 Active lamoTRIgine (LaMICtal) 100 mg tablet TAKE 2 TABLETS BY MOUTH AT BEDTIME FOR DEPRESSION 12/08/19 23 Active Dexcom G6 Transmitter Device USE DIRECTED FOR CONTINUOUS GLUCOSE MONITORING 10/20/20 22 Active atorvastatin (LIPITOR) 80 mg tablet Take 80 mg by mouth late in the day. 02/09/20 23 Active mirtazapine (REMERON SolTab) 15 mg Tablet, Rapid Dissolve DISSOLVE 1 TABLET BY MOUTH AT BEDTIME 02/21/20 23 Active Dulera 200-5 mcg/actuation inhaler Take 1 Puff by inhalation 2 times daily. 02/21/20 23 Active QUEtiapine (SEROquel) 100 mg tablet Take 100 mg by mouth daily at bedtime. 02/23/20 Active Trulicity 4.5 mg/0.5 mL injection INJECT 1 SYRINGE SUBCUTANEOUSLY ONCE A WEEK 03/27/20 Active polyethylene glycol 3350 (MIRALAX) 17 gram/dose Powder Take 1 Scoop (17 Grams) by mouth daily. Dissolve in 8 ounces of fluid and drink entire liquid 527 Gram 3 08/09/20 Active loperamide (IMODIUM) 2 mg capsuleIndications: Irritable bowel syndrome with mixed bowel habits Take 1 Capsule (2 mg) by mouth every 3 hours as needed for Diarrhea/Loose Stools. 90 Capsule 3 09/18/20 Active Additional Information Patient not taking.Reported on 03/04/2025 EPINEPHrine (EPIPEN) 0.3 mg/0.3 mL Auto-InjectorIndica tions:Allergy to alpha-gal Inject 0.3 mL (0.3 mg) by intramuscular injection 1 time daily as needed for Anaphylaxis. 2 Each 02/05/20 Active ascorbic acid (VITAMIN C) 250 mg Tablet, Chewable Take 250 mg by mouth daily. Active Nebulizer & Compressor For Neb Device Use QID with albuterol 1 Each 02/19/20 Active Nebulizer Accessories Kit Use qid with nebulizer 4 Each 6 02/19/20 24 Active albuterol (PROVENTIL,VENTOLIN ) 2.5 mg /3 mL (0.083 %) Solution for Nebulization Take 3 mL (2.5 mg) by inhalation every 6 hours as needed for Shortness of Breath. 120 Each 6 02/19/20 Active ondansetron (ZOFRAN ODT) 4 mg Tablet, Rapid Dissolve DISSOLVE 1 TABLET IN MOUTH EVERY 8 HOURS NEEDED FOR NAUSEA AND VOMITING DISSOLVE ON TOP OF TONGUE THEN SWALLOW WITH SALIVA 60 Tablet 03/22/20 Active Additional Information Patient not taking.Reported on 03/04/2025 sucralfate (CARAFATE) 100 mg/mL suspension Take 10 mL (1 Gram) by mouth 4 times daily before meals and at bedtime. 1242 mL 3 05/19/20 24 Active ranolazine ER (Ranexa) 500 mg Extended Release 12 hour tabletIndications:C hest pain, unspecified type Take 1 Tablet (500 mg) by mouth every 12 hours. 60 Tablet 11 06/17/20 24 Active DULoxetine (CYMBALTA) 30 mg Capsule, Delayed Release(E.C.) Take 30 mg by mouth 2 times daily. 04/16/20 24 Active Toujeo Max U-300 SoloStar 300 unit/mL (3 mL) Insulin Pen Inject 40 Units by subcutaneous injection daily. 07/14/20 24 Active ferrous sulfate 325 mg (65 mg iron) tabletIndications:I dewayne deficiency anemia secondary to inadequate dietary iron intake,History of colon cancer,Iron deficiency anemia due to chronic blood loss Take 1 tab ferrous sulfate with vitamin C 250 mg daily 90 Tablet 2 07/24/20 24 Active dicyclomine (BENTYL) 20 mg tabletIndications:C hronic abdominal pain TAKE 1 TABLET BY MOUTH 4 TIMES DAILY BEFORE MEAL(S) AND AT BEDTIME 360 Tablet 08/27/20 24 Active traMADoL (Ultram) 50 mg tabletIndications:G eneralized abdominal pain Take 1 Tablet (50 mg) by mouth every 8 hours as needed for Pain. 28 Tablet 5 11/29/19 25 Active apixaban (Eliquis) 5 mg tablet Take 1 Tablet (5 mg) by mouth 2 times daily. 200 Tablet 3 01/18/20 25 Active pregabalin (LYRICA) 100 mg Capsule Take 1 Capsule (100 mg) by mouth every 12 hours. 60 Capsule 5 01/18/20 25 Active predniSONE (DELTASONE) 20 mg tablet Take 1 Tablet (20 mg) by mouth every 8 hours. 15 Tablet 02/06/20 25 Active EPINEPHrine (EPIPEN) 0.3 mg/0.3 mL Auto-Injector Inject 0.3 mL (0.3 mg) by intramuscular injection 1 time daily as needed for Anaphylaxis. 2 Each 02/06/20 25 Active tobramycin-dexAMETH asone (TOBRADEX) 0.3-0.1 % suspension INSTILL 1 DROP INTO EACH EYE TWICE DAILY 5 mL 02/18/20 25 Active simethicone 125 mg Tablet, Chewable Dispense (3) 125 mg Simethicone chewable tablets with prep as directed. 3 Tablet 03/04/20 25 Active hydrOXYzine HCL (ATARAX) 50 mg tablet Take 50 mg by mouth 3 times daily as needed for Anxiety. 02/11/20 25 Active metFORMIN (GLUCOPHAGE) 500 mg tablet Take 1,000 mg by mouth 2 times daily with meals. 03/03/20 25 Active risperiDONE (RisperDAL) 1 mg tablet Take 1 Tablet by mouth 2 times daily. 02/19/20 25 Active traZODone (DESYREL) 100 mg tablet Take 100 mg by mouth daily at bedtime. 03/02/20 25 Active insulin lispro (HumaLOG,ADMELOG) 100 unit/mL pen syringe INJECT 22 UNITS BY SUBQ INJECTION + HIGH DOSE SLIDING SCALE WITH MEALS. MAX DAILY DOSE OF 100 UNITS. 02/19/20 25 Active Pentips Pen Needle 31 gauge x 3/16 Needle 1 FIVE TIMES DAILY WITH INSULIN 02/17/20 25 Active metoprolol succinate (TOPROL XL) 25 mg Extended Release 24 hour tablet Take 1 Tablet (25 mg) by mouth daily. 100 Tablet 3 05/16/20 25 Active tiZANidine (ZANAFLEX) 4 mg Tablet Take 1 Tablet (4 mg) by mouth every 8 hours as needed for Spasm. 30 Tablet 3 05/16/20 25 Active potassium CHLORIDE (MICRO-K EXTENCAPS) 10 mEq Extended Release capsule Take 4 Capsules (40 mEq) by mouth 2 times daily. 240 Capsule 5 05/16/20 25 Active pantoprazole (PROTONIX) 40 mg Tablet, Delayed Release (E.C.)Indications:G astroesophageal reflux disease without esophagitis Take 1 Tablet (40 mg) by mouth daily. 100 Tablet 3 05/16/20 25 Active furosemide (LASIX) 40 mg tablet Take 1 Tablet (40 mg) by mouth daily. 100 Tablet 3 05/16/20 25 Active Active Problems Problem Noted Date Diagnosed Date History of colon cancer 07/24/2024 Iron deficiency anemia secon marino to inadequate dietary iron intake 01/10/2024 Chronic venous insufficiency 11/24/2022 Lymphedema 11/24/2022 Trouble swallowing 07/07/2021 COPD 05/15/2020 Other chest pain 05/06/2020 Left-sided weakness 05/06/2020 Morbid obesity with body mass index of 40.0-49.9 03/20/2020 DM (diabetes mellitus), type 2 09/13/2019 History of pulmonary embolism 06/14/2019 Iron deficiency anemia due to chronic blood loss 01/22/2019 Hernia of abdominal wall 01/08/2019 Lung nodule, multiple 12/18/2018 Anemia in neoplastic disease 12/17/2018 Bowel obstruction 12/12/2018 Nausea \T\ vomiting 12/11/2018 Congestive heart failure Resolved Problems Problem Noted Date Diagnosed Date Resolved Date Adenocarcinoma, colon 12/17/20182024 Encounters Date Type Department Care Team Description 07/15/2025 External Device Data [facility]CTION Provider, Abstract 07/09/[address] [address] Artem Bliss MD Patient Communication 07/09/2025 External Device Data [facility]CTION Provider, Abstract 06/10/2025 External Device Data [facility] Provider, Abstract 06/10/2025 External Device Data [facility] Provider, Abstract 05/30/2025 3:00 PM CDT Video Visit [facility] [address] [place] [address] Raysa Washington FNP Type 2 diabetes mellitus with diabetic polyneuropathy, with long-term current use of insulin ([facility]) (Primary Dx); Morbid obesity with body mass index of 40.0-49.9; Weakness of both lower extremities; Chronic congestive heart failure, unspecified heart failure type ([facility]); History of colon cancer 05/16/[address] [address] Artem Bliss MD Gastroesophageal reflux disease without esophagitis 05/13/2025 External Device Data [facility] Provider, Abstract 05/06/2025 External Device Data [facility] Provider, Abstract 05/04/2025 Refill [facility] [address] [place] [address] Raysa Washington FNP 04/30/2025 10:26 AM CDT - 04/30/2025 11:59 PM CDT Hospital Encounter [address] [address] Suzette Bernardo, Discharge Disposition: Home or Self Care 04/23/2025 10:01 AM CDT - 04/23/2025 11:59 PM CDT Hospital Encounter [address] [place] [address] Suzette Bernardo, DO Discharge Disposition: Home or Self Care 04/22/2025 External Device Data [facility] Provider, Abstract 04/20/2025 Results Follow-Up [facility] [id number] [place] [address] Mina Barboza, OD CT HEAD W WO CONTRAST 04/16/2025 10:27 AM CDT - 04/16/2025 11:59 PM CDT Hospital Encounter [facility] [place] [address] [facility] [address] [place] [phone] Mina Barboza, OD Discharge Disposition: Home or Self Care 04/16/2025 10:26 AM CDT - 04/16/2025 11:59 PM CDT Hospital Encounter [facility] [place] [address] [facility] [address] [place] [id number] Suzette Bernardo, DO Discharge Disposition: Home or Self Care 04/16/2025 Orders Only [facility] [id number] [place] [address] Mina Barboza, OD Vision loss, bilateral (Primary Dx); Visual field defect of both eyes; TIA (transient ischemic attack); Distortion of visual image from Last 3 Months Immunizations Immunization Administration Dates Next Due (ADACEL/BOOSTRIX)(10 YR UP) TDAP VACCINE, 0.5ML, IM 03/09/2009 (PFIZER ASHA)(12 YR UP PRIMA RY SERIES) COVID-19 VACCINE - EMERGENCY USE AUTHORIZATION, MRNA, ASHA(PF) 30 MCG/0.3 ML IM SUSP 03/16/2022 (PFIZER)(12 YR UP) COVID-19 VACCINE - EMERGENCY USE AUTHORIZATION, MRNA, [id number](PF) 30 MCG/0.3 ML IM SUSP 01/27/2021,01/06/2021 (PNEUMOVAX 23)(50 YRS UP) PN EUMOCOCCAL POLYSACCHARIDE (PPV23) 0.5 ML, IM 09/14/2019 (PREVNAR 13)(6 WKS UP) PNEUM OCOCCAL CONJUGATE (PCV13) 0.5 ML, IM 06/23/2022 Adacel Vaccine > 7 Yo IM 03/09/2009 INFLUENZA VACCINE QUADRIVALE NT 3 YR UP PF IM 12/26/2018 INFLUENZA VACCINE QUADRIVALE NT 6 MOS UP PF IM 07/31/2021,09/08/2020,12/26/2018,12/28 INFLUENZA VACCINE QUADRIVALE NT RECOMB 18 YR UP PF IM 09/14/2019 INFLUENZA VACCINE TRIVALENT SPLIT VIRUS, (6 MOS UP), 0.25ML OR 0.5ML, IM 08/08/2024 Influenza A (H1N1) Vaccine IM 09/18/2009 Influenza Seasonal Unspecifi ed Formulation IM 08/08/2024,08/03/2021,09/14/2020,12/26,12/28/2016,09/18/2009 Influenza Virus Vaccine, Spl it Virus (Incl. Purified Surface antigen)-retired CODE 08/27/2008 PNEUMOVAX (PPSV23) pneumococ angelique polysaccharide 23-valent Vaccine 09/14/2019,08/27/2008 PREVNAR (PCV13) pneumococcal 13-valent conjugate Vaccine 06/23/2022 Pneumococcal Polysaccharide Vacc 23-magdy IM SCHIP 09/14/2019,08/27/2008 Family History * Patient is adopted Medical History Relation Name Comments Healthy Daughter Healthy Son 1 Healthy Son 2 Colon Cancer Neg Hx Relation Name Status Comments Daughter Alive Son 1 Alive Son 2 Alive Social History Tobacco Use Types Packs/Day Years Used Date Smoking Tobacco: Former Cigarettes 1.5 5 0 11/06/2013 - 11/06/2018 Smokeless Tobacco: Current Chew Tobacco Cessation:Ready to Q uit: No; Counseling Given: Yes Alcohol Use Standard Drinks/Week Comments No 0 [...] on file 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 Gender Identity Not on file Sexual Orientation Not on file Last Filed Vital Signs Vital Sign Reading Time Taken Comments Blood Pressure 95/62 04/30/2025 10:48 AM CDT Pulse 75 04/30/2025 10:48 AM CDT Temperature 36.6 C (97.8 F) 04/30/2025 10:48 AM CDT Respiratory Rate 20 04/30/2025 10:48 AM CDT Oxygen Saturation 93% 04/30/2025 10:48 AM CDT Inhaled Oxygen Concentration - - Weight 104.4 kg (230 lb 2 oz) 03/12/2025 12:42 P M CDT Height 160 cm (5' 3 ) 03/12/2025 12:42 PM CDT Body Mass Index 40.76 03/12/2025 12:42 PM CDT Plan of Treatment Upcoming Encounters Date Type Department Care Team (Late st Contact Info) Description 08/04/2025 2:00 PM CDT Appointment [facility] [address] [address] Suzette Bernardo [address] [address] 08/04/2025 2:00 PM CDT Appointment [facility] [address] [place] [address] [facility] [address] [place] [address] Suzette Bernardo [facility] [address] [address] 08/07/2025 1:20 PM CDT Office Visit 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 [address] [address] Luz Elena Gallagher, [facility] [address] [address] Health Maintenance Due Date Last Done Comments HEPATITIS B VACCINES (1 of 3 - 19+ 3-dose series) 1991 DTAP/TDAP/TD VACCINES (3 - T d or Tdap) 03/09/2019 03/09/2009, 03/09/2009 ZOSTER VACCINE (1 of 2) 2022 DIABETES MICROALBUMIN ANNUAL SCREEN 05/17/2025 05/17/2024 INFLUENZA VACCINE (#1) 2025 , 08/08/2024, 08/09/2023, Additional history exists COVID-19 Vaccine ( - 2024-2 6 season) 2025 03/16/2022, 01/27/2021, 01/06/2021 DIABETES HBA1C Q 6 MONTHS 09/12/20252024, 08/19/2024, 02/19/2024, Additional history exists DIABETES ANNUAL FOOT EXAM 11/27/2025 11/27/2024 DIABETES ANNUAL RETINAL EXAM 02/17/2026, 02/17/2025, 02/17/2025, Additional history exists DIABETES: A1C (Auto Order) 03/12/202603/12, 08/19/2024, 02/19/2024, Additional history exists LDL CHOLESTEROL ANNUAL 03/12/2026 , 08/19/2024, 12/17/2021, Additional history exists COLORECTAL SCREENING 03/21/2028 03/21/2025, 03/21/2025, 08/30/2023, Additional history exists Abdominal Aortic Aneurysm (A AA) Screening Completed 11/10/2021 Preventative Visit- Commercial Completed 11/27/2024 Medical Devices Implanted Type Area [employer] Senior [employer] Device Identifier Shelf Expiration Date Model / Serial / Lot Clip Endo Resolution 360 235cm [id number] - [id number] Implanted:Qty : 1 on 12/11/2018 by Jean Claude Damon MD Clip N/A: Perianal [employer] 09/19/2021 [id number] / [id number] / [id number] Hemostatic Surgicel 6x9in 1944 - [id number] Implanted:Qty : 1 on 12/13/2018 by Samir Lim MD Hemostatic Abdomen [employer] 07/06/2023 194 / / [id number] Mesh Ventralight St 8x10in [id number] - [id number] Implanted:Qty : 1 on 10/01/2021 by González Silva MD at Mesh N/A: Abdomen CR [employer] [id number] 05/03/2023 [id number] / / [id number] Port Pwrprt Clr Tisha 8fr Mri [id number] Implanted:Qty : 1 on 01/21/2019 by Alida Zayas MD Port Right: Chest CR [employer] 03/05/2020 [id number] / / [id number] Stent Colonic [id number] - [id number] Implanted:Qty : 1 on 12/11/2018 by Jean Claude Damon MD Stent N/A: Perianal [employer] 02/13/2020 [id number] / [id number] / [id number] Loop Recorder [id number] / [id number] / Explanted Type Area [employer] Senior [employer] Device Identifier Shelf Expiration Date Model / Serial / Lot Mesh Ventralight St 4x6in [id number] - [id number] Implanted:04/07 by Leonardo Jim DO (Quantity not on file) Explanted:Qty: 1 on 10/01/2021 by González Silva MD at Mesh N/A: Abdomen CR [employer] [id number] 10/03/2021 [id number] / / [id number] Procedures Procedure Name Priority Date/Time Associated Diagnosis Comments CT HEAD W WO CONTRAST Stat 04/16/2025 2:22 PM CDT TIA (transient ischemic attack) COLONOSCOPY REPORT 03/21/2025 1: 20 PM CDT LIPID PANEL Routine 03/12/2025 1:21 PM CDT Chronic congestive heart failure, unspecified heart failure type ([facility]) HEMOGLOBIN A1C Routine 03/12/2025 1:21 PM CDT Type 2 diabetes mellitus with diabetic polyneuropathy, with long-term current use of insulin ([facility]) MICROALBUMIN/CREATIN INE RATIO, RANDOM UR Routine 05/17/2024 10:27 AM CDT Type 2 diabetes mellitus with diabetic polyneuropathy, with long-term current use of insulin ([facility]) CT ABDOMEN PELVIS WO CONTRAST Stat 11/10/2021 2:51 PM 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 Exam: CT HEAD W WO CONTRAST Date/Time of Exam: 04/16/2025 2:22 PM Reason For Exam: Transient ischemic attack (TIA);Vision loss, binocular. Diagnosis: TIA (transient ischemic attack). Technique: CT of the head was performed both before and after the administration of intravenous contrast. Contrast: IOPAMIDOL 61 % INTRAVENOUS SOLUTION (SINGLE USE VIAL) Given:95 mL Findings: Only the lower portion of the cranial vault is obtained on the noncontrast examination. No acute infarction, hemorrhage or extra-axial collection. Mild sequela of small vessel ischemic disease and diffuse parenchymal volume loss. No hydrocephalus. The basal cisterns are patent. No acute osseous abnormality. The paranasal sinuses and mastoid air cells are clear. Prior cataract surgery. No abnormal postcontrast enhancement. IMPRESSION: No acute intracranial abnormality. No abnormal brain parenchymal enhancement. Narrative Procedure Note Major Gregory DO - 04/16/2025 IMPRESSION: Please see below. Exam: CT HEAD W WO CONTRAST Date/Time of Exam: 04/16/2025 2:22 PM Reason For Exam: Transient ischemic attack (TIA);Vision loss, binocular. Diagnosis: TIA (transient ischemic attack). Technique: CT of the head was performed both before and after the administration of intravenous contrast. Contrast: IOPAMIDOL 61 % INTRAVENOUS SOLUTION (SINGLE USE VIAL) Given:95 mL Findings: Only the lower portion of the cranial vault is obtained on the noncontrast examination. No acute infarction, hemorrhage or extra-axial collection. Mild sequela of small vessel ischemic disease and diffuse parenchymal volume loss. No hydrocephalus. The basal cisterns are patent. No acute osseous abnormality. The paranasal sinuses and mastoid air cells are clear. Prior cataract surgery. No abnormal postcontrast enhancement. IMPRESSION: No acute intracranial abnormality. No abnormal brain parenchymal enhancement. Mina Dario Tamra OD CT ORDERABLES Final Resu lt * COLONOSCOPY REPORT (03/21/2025 1:20 PM CDT) Narrative Procedure Note Aldo Krishnamurthy MD - 03/21/2025 1:20 PM CDT GI Patient Name: González Don Procedure Date: 03/21/2025 Date of : 1970 Admit Type: Outpatient Age: 54 Attending MD: Aldo Krishnamurthy , , Procedure: Colonoscopy Indications: Rectal bleeding Providers: Aldo Krishnamurthy Referring MD: Debra Cast Medicines: Monitored Anesthesia Care Complications: No immediate complications. Procedure: After I obtained informed consent, the scope was passed under direct vision. Throughout the procedure, the patient's blood pressure, pulse, and oxygen saturations were monitored continuously. The Colonoscope was introduced through the anus and advanced to the cecum, identified by appendiceal orifice and ileocecal valve. The colonoscopy was performed without difficulty. The patient tolerated the procedure well. The quality of the bowel preparation was evaluated using the BBPS (Frederick Bowel Preparation Scale) with scores of: Right Colon = 3 (entire mucosa seen well with no residual staining, small fragments of stool or opaque liquid), Transverse Colon = 3 (entire mucosa seen well with no residual staining, small fragments of stool or opaque liquid) and Left Colon = 2 (minor amount of residual staining, small fragments of stool and/or opaque liquid, but mucosa seen well). The total BBPS score equals 8. Estimated Blood Loss: Estimated blood loss: none. Findings: There was evidence of a prior end-to-end colo-colonic anastomosis in the sigmoid colon. Internal hemorrhoids were found during endoscopy. The hemorrhoids were mild. The exam was otherwise without abnormality on direct and retroflexion views. Impression: - End-to-end colo-colonic anastomosis. - Internal hemorrhoids. - The examination was otherwise normal on direct and retroflexion views. - No specimens collected. Recommendation: - Repeat colonoscopy in 3 years for surveillance based on personal history of colon cancer. - Thank you for the referral. Aldo Krishnamurthy, 03/21/2025 1:19:57 PM Number of Addenda: 0 Note Initiated On: 03/21/2025 12:09 PM Scope Withdrawal Time 0 hours 3 minutes 59 seconds Scope In: 12:27:11 PM Scope Out: 12:33:02 PM [address] [place], [place] Aldo Krishnamurthy MD GI PROCEDURE ORDERABLES Final Result * (ABNORMAL) HEMOGLOBIN A1C (03/12/2025 1:21 PM CDT) HEMOGLOBIN A1C 7.1(H) <5.7 % [facility] Comment: For someone without known diabetes, a hemoglobin A1c value of 6.5% or greater indicates that they may have diabetes and this should be confirmed with a follow-up test. For someone with known diabetes, a value <7% indicates that their diabetes is well controlled and a value greater than or equal to 7% indicates suboptimal control. A1c targets should be individualized based on duration of diabetes, age, comorbid conditions, and other considerations. Currently, no consensus exists regarding use of hemoglobin A1c for diagnosis of diabetes for children. ESTIMATED AVERAGE GLUCOSE (MG/DL) 157 mg/dL [facility] ESTIMATED AVERAGE GLUCOSE (MMOL/L) 8.7 mmol/L [facility] Comment: Test Performed at: [facility] [address] [address] Denisse Chen MD Blood 03/12/2025 1:21 PM CDT 03/13/2025 3:05 AM CDT Luz Elena Gallagher BIOINFORMATICS PROGRAMMER CHEMISTRY ORDERABLES Fin al Result [facility] [phone] [facility] [address] [address] [address] * (ABNORMAL) LIPID PANEL (03/12/2025 1:21 PM CDT) CHOLESTEROL 87 <200 mg/dL [facility] HDL 31(L) > OR = 40 mg/dL [facility] TRIGLYCERIDE 215(H) <150 mg/dL [facility] Comment: If a non-fasting specimen was collected, consider repeat triglyceride testing on a fasting specimen if clinically indicated. Erna et al. J. of Clin. Lipidol. 2015;9:129-169. LDL CALCULATED 28 mg/dL (calc) [facility] Comment: Reference range: <100 Desirable range <100 mg/dL for primary prevention; <70 mg/dL for patients with CHD or diabetic patients with > or = 2 CHD risk factors. LDL-C is now calculated using the Christopher-Clifton calculation, which is a validated novel method providing better accuracy than the Friedewald equation in the estimation of LDL-C. Christopher SS et al. ZARIA. 2013;310(19): 1346-7326 (http://education.Waterfall/faq/KTX461) CHOL/HDL RATIO 2.8 <5.0 (calc) [facility] NON-HDL CHOLESTEROL 56 <130 mg/dL (calc) [facility] Comment: For patients with diabetes plus 1 major ASCVD risk factor, treating to a non-HDL-C goal of <100 mg/dL (LDL-C of <70 mg/dL) is considered a therapeutic option. Test Performed at: [facility] [address] [place] [address] Denisse Chen MD Blood 03/12/2025 1:21 PM CDT 03/13/2025 3:05 AM CDT Luz Elena Gallagher BIOINFORMATICS PROGRAMMER CHEMISTRY ORDERABLES Fin al Result Performing Organization Address City/[facility]/ZIP Co de Phone Number [facility] [phone] [facility] [address] [place] [address] * MICROALBUMIN/CREATININE RATIO, RANDOM UR (05/17/2024 10:27 AM CDT) Pathologist [facility] Creatinine, Urine 29 20 - 320 mg/dL [facility] MICROALBUMIN, URINE <0.2 See Note: mg/dL [facility] Comment: Reference Range: Reference Range Not established MICROALBUMIN/CREAT RATIO, UR NOTE <30 mg/g creat [facility] Comment: NOTE: The urine albumin value is less [...] patient to be within a diagnostic category. Test Performed at: [facility] [address] Denisse Chen MD Urine URINE SPECIMEN OBTAINED BY CLEAN CATCH PROCEDURE / Unknown 05/17/2024 10:27 AM CDT 05/18/2024 1:20 AM CDT Raysa Washington BIOINFORMATICS PROGRAMMER URINE ORDERABLES Final R esult [facility] [phone] [facility] [address] [place] [address] * CT ABDOMEN PELVIS WO CONTRAST (11/10/2021 2:51 PM ANNUAL GREENHOUSE MANAGER) Anatomical Region Laterality Modality Abdomen Computed Tomogra phy 11/10/2021 2:57 PM ANNUAL GREENHOUSE MANAGER Impressions 11/11/2021 7:41 AM ANNUAL GREENHOUSE MANAGER IMPRESSION: Please see below. Exam: CT ABDOMEN PELVIS WO CONTRAST Date/Time of Exam: 11/10/2021 2:51 PM Reason For Exam: hx ventral hernia repair, abd. pain, diarrhea. Diagnosis: H/O ventral hernia repair; Abdominal pain, unspecified abdominal location; Acute diarrhea. Technique: CT imaging was performed of the abdomen and pelvis without the administration of intravenous contrast. Comparison: CT chest, abdomen and pelvis 08/27/2021. Findings: Partially visualized chest: Large fat-containing Bochdalek-type hernia of the medial left lung base is present. Liver: Hepatic steatosis. Gallbladder: Collapsed. Pancreas: Normal. Spleen: Mild splenomegaly measuring 12.8 cm in length. Adrenal glands: Normal. Kidneys and ureters: No hydronephrosis. No parenchymal abnormality. Punctate nonobstructing calculus of the upper pole right renal collecting system is present. Urinary bladder: Unremarkable. Reproductive organs: Unremarkable. GI tract: No intestinal obstruction. No bowel wall abnormality. Appendix: The appendix specifically is within normal limits. Free fluid: No ascites. No pneumoperitoneum. Lymph nodes: No lymphadenopathy. Vasculature: Scattered aortic calcifications. Body wall: An approximately 15.3 cm (AP) x 16.7 cm (CC) x 5.0 cm (transverse) fat-containing lateral right abdominal wall hernia is present. Postoperative change of ventral hernia repair with an approximately 6.6 cm (transverse) x 1.7 cm (AP) x 3.0 cm (CC) left paramedian deep subcutaneous fluid collection of the anterior left abdominal wall most consistent with postsurgical hematoma/seroma. Osseous structures: Status post decompression laminectomy and posterior spinal fusion L5-S1 with resultant metallic artifact with donor site of the left iliac bone present. Grade 1 anterolisthesis of L5 on S1. IMPRESSION: 1. Status post ventral hernia repair with postsurgical hematoma/seroma of the anterior left abdominal wall as described. 2. Persistent large fat-containing right lateral abdominal wall hernia. 3. Large fat-containing Bochdalek-type hernia of the medial left lung base. 4. Hepatic steatosis. [id number] Narrative Procedure Note Clemencia Peralta MD - 11/11/2021 IMPRESSION: Please see below. Exam: CT ABDOMEN PELVIS WO CONTRAST Date/Time of Exam: 11/10/2021 2:51 PM Reason For Exam: hx ventral hernia repair, abd. pain, diarrhea. Diagnosis: H/O ventral hernia repair; Abdominal pain, unspecified abdominal location; Acute diarrhea. Technique: CT imaging was performed of the abdomen and pelvis without the administration of intravenous contrast. Comparison: CT chest, abdomen and pelvis 08/27/2021. Findings: Partially visualized chest: Large fat-containing Bochdalek-type hernia of the medial left lung base is present. Liver: Hepatic steatosis. Gallbladder: Collapsed. Pancreas: Normal. Spleen: Mild splenomegaly measuring 12.8 cm in length. Adrenal glands: Normal. Kidneys and ureters: No hydronephrosis. No parenchymal abnormality. Punctate nonobstructing calculus of the upper pole right renal collecting system is present. Urinary bladder: Unremarkable. Reproductive organs: Unremarkable. GI tract: No intestinal obstruction. No bowel wall abnormality. Appendix: The appendix specifically is within normal limits. Free fluid: No ascites. No pneumoperitoneum. Lymph nodes: No lymphadenopathy. Vasculature: Scattered aortic calcifications. Body wall: An approximately 15.3 cm (AP) x 16.7 cm (CC) x 5.0 cm (transverse) fat-containing lateral right abdominal wall hernia is present. Postoperative change of ventral hernia repair with an approximately 6.6 cm (transverse) x 1.7 cm (AP) x 3.0 cm (CC) left paramedian deep subcutaneous fluid collection of the anterior left abdominal wall most consistent with postsurgical hematoma/seroma. Osseous structures: Status post decompression laminectomy and posterior spinal fusion L5-S1 with resultant metallic artifact with donor site of the left iliac bone present. Grade 1 anterolisthesis of L5 on S1. IMPRESSION: 1. Status post ventral hernia repair with postsurgical hematoma/seroma of the anterior left abdominal wall as described. 2. Persistent large fat-containing right lateral abdominal wall hernia. 3. Large fat-containing Bochdalek-type hernia of the medial left lung base. 4. Hepatic steatosis. [id number] González Silva MD CT ORDERABLES Final Result * DIABETES EYE EXAM (08/02/2021) us Abstract Provider HEALTH MAINTENANCE Final Resul t from Last 3 Months or Most Recently Relevant to Health Maintenance Insurance RX INFOCROSSING Medicaid RX [employer] PLANS (INTERNAL) [facility] Internal Plans MEDICAID [place] Advance Directives For more information, please contact: [phone] * Full Code (Latest Code Status on File) Date Activated Date Inactivated Comments 03/21/2025 11:19 AM 03/21/2025 3:07 PM * Full Code Date Activated Date Inactivated Comments 02/21/2025 7:42 AM 02/21/2025 11:17 AM * Full Code Date Activated Date Inactivated Comments 06/06/2024 1:48 AM 06/07/2024 2:21 PM * Full Code Date Activated Date Inactivated Comments 10/16/2023 7:33 AM 10/16/2023 12:03 PM * Full Code Date Activated Date Inactivated Comments 05/24/2022 8:30 AM 05/24/2022 12:14 PM Care Teams Cutter Down Relationship Specialty Start Date End Date Artem Bliss MD [address] [id number] PCP - General Family Practice 03/12/25
--- OUTSIDE RECORDS SUMMARY | 2025-07-17 16:10 | XMS_ITS | Clinical Summary ---
Author Organization [facility] de Address [address] [place] [address] Phone Care Team Providers Care Tariff Counsel Name Role Phone Perla Maradiaga MD, Irineo Amanda Primary Care Provider [phone] Allergies Active Allergy Reactions Criticality Noted Date Comments Alpha-Gal (Wnfcfvfhz-Sxjwl-4,3-Ga lactose) Anaphylaxis High 10/19/2020 Bupropion Other (See Comments) 05/14/2019 Dizziness, passing out Nitroglycerin Anaphylaxis High 07/29/2020 Medications walker Length of Need: 99 months Ht Readings from Last 1 Encounters: 12/11/18 : 5' 3 (1.6 m) , Weight: 89 kg (196 lb 1.6 oz) (12/19/18 0500). If over 300 lbs, patient requires heavy duty. Type of walker:walker with wheels. 1 Each 12/19/19 19 Active pyridoxine, vitamin B6, (VITAMIN B-6) 100 mg Tablet Take 100 mg by mouth 3 times daily. Active calcium-cholecalcif urszula (OS-TANG 500+D) 500 mg(1,250mg) -200 unit tablet Take 1 Tablet by mouth 2 times daily with meals. 60 Tablet 3 06/18/20 19 Active OTHER Please provide pen needles for Victoza 30 Each 6 02/26/20 Active albuterol HFA 90 mcg inhaler Take 2 Puffs by inhalation every 6 hours as needed for Shortness of Breath. 8.5 Gram 6 04/20/20 20 Active fenofibrate nanocrystallized (TRICOR) 145 mg tablet Take 1 Tablet (145 mg) by mouth daily. 10 Tablet 0 1:03 PM CDT 05/09/20 20 Active budesonide-formoter oL (SYMBICORT) 160-4.5 mcg/actuation HFA Aerosol Inhaler Take 2 Puffs by inhalation 2 times daily. 1 Gram 6 05/15/20 20 Active metFORMIN (GLUCOPHAGE) 1,000 mg tablet Take 1 Tablet (1,000 mg) by mouth 2 times daily with meals. 180 Tablet 3 05/22/20 20 Active Lactobacillus acidophilus (Probiotic) 10 billion cell Capsule Take 1 Capsule by mouth daily. 30 Capsule 2 06/29/20 20 Active sucralfate (CARAFATE) 1 gram tablet Take 1 Tablet (1 Gram) by mouth 4 times daily before meals and at bedtime. 120 Tablet 2 09/15/20 20 Active EPINEPHrine (EPIPEN) 0.3 mg/0.3 mL Auto-InjectorIndica tions:Allergy to alpha-gal Inject 0.3 mL (0.3 mg) by intramuscular injection 1 time daily as needed for Anaphylaxis. 2 Each 09/30/20 20 Active traZODone (DESYREL) 50 mg tablet TAKE 1 TABLET BY MOUTH 1 HOUR BEFORE BEDTIME FOR INSOMNIA 10/09/20 Active sennosides (SENOKOT) 8.6 mg tablet Take 2 Tablets (17.2 mg) by mouth daily. 10/27/20 20 Active clonazePAM (KlonoPIN) 0.5 mg TabletIndications:G AD (generalized anxiety disorder) Take 1 Tablet (0.5 mg) by mouth 2 times daily. 60 Tablet 5 11/11/19 21 Active metoprolol tartrate (LOPRESSOR) 25 mg tablet Take 1 tablet by mouth once daily 30 Tablet 6 12/01/19 21 Active OLANZapine (ZyPREXA) 10 mg tablet Take 10 mg by mouth daily at bedtime. Active doxepin (SINEquan) 25 mg capsule Take 1 Capsule (25 mg) by mouth 3 times daily. 903 Capsule 3 12/24/19 21 Active Eliquis 5 mg tabletIndications:r estart eliquis in 5 days Take 1 tablet by mouth twice daily 60 Tablet 3 12/30/19 Active pantoprazole (PROTONIX) 40 mg Tablet, Delayed Release (E.C.) Take 1 tablet by mouth once daily 30 Tablet 3 12/30/19 Active potassium chloride (KLOR-CON) 20 mEq Extended Release tablet Take 2 tablets by mouth twice daily 120 Tablet 3 12/30/19 Active liraglutide (VICTOZA) 0.6 mg/0.1 mL (18 mg/3 mL) Inject 1.8 mg by subcutaneous injection daily. 3 mL 6 01/01/20 Active insulin glargine (Lantus Solostar U-100 Insulin) 100 unit/mL pen syringe Inject 10 Units by subcutaneous injection daily at bedtime. 15 mL 3 01/01/20 Active sertraline (ZOLOFT) 50 mg tablet 50 mg. 06/15/20 Active cyclobenzaprine (FLEXERIL) 10 mg tablet Take 1 Tablet (10 mg) by mouth 3 times daily as needed for Pain. 30 Tablet 2 01/22/20 Active pregabalin (Lyrica) 100 mg Capsule Take 1 Capsule (100 mg) by mouth every 12 hours. 60 Capsule 5 01/22/20 Active lancets Use to check BG daily DX: E11.90 100 Each 6 03/09/20 Active OneTouch Ultra Blue Test Strip Strip 3 times daily before meals. 100 Each 11 03/31/20 Active ondansetron (ZOFRAN ODT) 4 mg Tablet, Rapid Dissolve Take 1 Tablet (4 mg) by mouth every 8 hours as needed for Nausea/Emesis. Dissolve tablet on top of tongue, then swallow with saliva. 60 Tablet 1 04/06/20 Active dicyclomine (BENTYL) 20 mg tabletIndications:C hronic abdominal pain TAKE 1 TABLET BY MOUTH 4 TIMES DAILY BEFORE MEAL(S) AND AT BEDTIME 120 Tablet 04/06/20 Active Stool Softener 100 mg capsule Take 1 capsule by mouth twice daily 60 Capsule 04/14/20 21 Active ferrous sulfate 325 mg (65 mg iron) tablet Take 1 tablet by mouth twice daily 60 Tablet 04/14/20 Active atorvastatin (LIPITOR) 40 mg tablet TAKE 1 TABLET BY MOUTH AT BEDTIME 90 Tablet 04/26/20 Active furosemide (LASIX) 20 mg tablet Take 1 tablet by mouth once daily 30 Tablet 04/27/20 21 Active Active Problems Problem Noted Date Diagnosed Date COPD 05/15/2020 Chest pain 05/06/2020 Left-sided weakness 05/06/2020 Morbid obesity with body mass index of 40.0-49.9 03/20/2020 DM (diabetes mellitus), type 2 09/13/2019 History of pulmonary embolism 06/14/2019 Iron deficiency anemia due to chronic blood loss 01/22/2019 Hernia of abdominal wall 01/08/2019 Lung nodule, multiple 12/18/2018 Anemia in neoplastic disease 12/17/2018 Adenocarcinoma, colon 12/17/2018 Cancer Staging:Clinical stage from 01/08/2019:Stage IIA(cT3, cN0, cM0) - Signed by Suzette Bernardo DO on 01/08/2019 Bowel obstruction 12/12/2018 Nausea & vomiting 12/11/2018 Congestive heart failure Resolved Problems Problem Noted Date Diagnosed Date Resolved Date Moderate protein-calorie malnutrition 12/13/2018 11/19/2020 Malignant neoplasm of sigmoid colon 12/11/2018 12/26/2018 Cancer Staging:Clinical: Unsigned Pathologic stage from 12/14/2018: pT3, pN0 - Signed by Maria Victoria Trivedi MD on 12/14/2018 Immunizations Immunization Administration Dates Next Due (PNEUMOVAX 23)(50 YRS UP) PN EUMOCOCCAL POLYSACCHARIDE (PPV23) 0.5 ML, IM 09/14/2019 INFLUENZA VACCINE QUADRIVALENT 3 YR UP PF IM INFLUENZA VACCINE QUADRIVALENT RECOMB 18 YR UP P F IM 09/14/2019 Influenza Seasonal Unspecified Formulation IM Family History * Patient is adopted Medical History Relation Name Comments Healthy Daughter Healthy Son 1 Healthy Son 2 Colon Cancer Neg Hx Relation Name Status Comments Daughter Alive Son 1 Alive Son 2 Alive Social History Tobacco Use Types Packs/Day Years Used Date Smoking Tobacco: Former Cigarettes 1.5 30 0 11/06/1988 - 11/06/2018 Smokeless Tobacco: Current Chew Tobacco Cessation:Ready to Q uit: No; Counseling Given: Yes Alcohol Use Standard Drinks/Week Comments No 0 (1 standard drink = 0.6 oz pur e alcohol) Sex and Gender Information Value Date Recorded Sex Assigned at Not on file Legal Sex Male 6:57 AM PADDED PRODUCTS FINISHER Gender Identity Not on file Sexual Orientation Not on file Last Filed Vital Signs Vital Sign Reading Time Taken Comments Blood Pressure 126/90 03/19/2021 7:41 AM CDT Pulse 109 03/17/2021 10:20 AM CDT Temperature 36.6 C (97.9 F) 03/17/2021 10:20 AM CDT Respiratory Rate 20 03/17/2021 10:20 AM CDT Oxygen Saturation 97% 03/17/2021 10:20 AM CDT Inhaled Oxygen Concentration - - Weight 113.4 kg (250 lb) 03/19/2021 7:41 AM CDT Height 160 cm (5' 3 ) 03/19/2021 7:41 AM CDT Body Mass Index 44.29 03/19/2021 7:41 AM CDT Plan of Treatment Health Maintenance Due Date Last Done Comments DIABETES ANNUAL FOOT EXAM 1990 DIABETES MICROALBUMIN ANNUAL SCREEN 1990 DTAP/TDAP/TD VACCINES (1 - Tdap) 1991 HEPATITIS B VACCINES (1 of 3 - 19+ 3-dose series) 1991 LDL CHOLESTEROL ANNUAL 05/07/2021 0, 07/16/2019, 05/03/2019 DIABETES HBA1C Q 6 MONTHS 07/01/20212020, 03/25/2020, 08/09/2019 ZOSTER VACCINE (1 of 2) 2022 INFLUENZA VACCINE (#1) 2025 0, 09/14/2019, 12/26/2018, Additional history exists COLORECTAL SCREENING 10/22/2025 10/22/2020, 10/22/2020, 12/24/2019, Additional history exists Preventative Visit-Managed Medicaid 11/28/2025 11/27/2024 DIABETES ANNUAL RETINAL EXAM 01/06/202601/2025, 01/06/2025, 08/02/2021, Additional history exists Medical Devices Implanted Type Area Operations And Intelligence Assistant Device Identifier Shelf Expiration Date Model / Serial / Lot Clip Endo Resolution 360 235cm [id number] - [id number] Implanted:Qty : 1 on 12/11/2018 by Jean Claude Damon MD at [facility] Clip N/A: Perianal [employer] 09/19/2021 [id number] / [id number] / [id number] Hemostatic Surgicel 6x9in 194 - [id number] Implanted:Qty : 1 on 12/13/2018 by Samir Lim MD at [facility] Hemostatic Abdomen J[employer] 07/06/2023 1946 / / [id number] Mesh Ventralight St 4x6in [id number] - [id number] Implanted:12/2019 by Leonardo Jim DO at [facility] (Quantity not on file) Mesh N/A: Abdomen CR [employer] [id number] 10/03/2021 [id number] / / [id number] Port Pwrprt Clr Tisha 8fr Mri [id number] Implanted:Qty : 1 on 01/21/2019 by Alida Zayas MD Port Right: Chest CR [employer] 03/05/2020 [id number] / / [id number] Stent Colonic 03b61w22 [id number] - [id number] Implanted:Qty : 1 on 12/11/2018 by Jean Claude Damon MD at [facility] Stent N/A: Perianal [employer] MARYLOU 02/13/2020 [id number] / [id number] / [id number] Loop Recorder [id number] / [id number] / Procedures Procedure Name Priority Date/Time Associated Diagnosis Comments HEMOGLOBIN A1C Routine 01/01/2021 3:24 PM PADDED PRODUCTS FINISHER Type 2 diabetes mellitus with diabetic polyneuropathy, without long-term current use of insulin ([facility]) COLONOSCOPY REPORT 10/22/2020 12 :15 PM PADDED PRODUCTS FINISHER LIPID PANEL Routine 05/07/2020 12:58 AM CDT from Last 3 Months or Most Recently Relevant to Health Maintenance Results * (ABNORMAL) HEMOGLOBIN A1C (01/01/2021 3:24 PM PADDED PRODUCTS FINISHER) HEMOGLOBIN A1C 8.2(H) See Comment % 01/01/2021 7:14 PM PADDED PRODUCTS FINISHER [facility] EST. AVG GLUCOSE, A1C 189 mg/dL 01/01/2021 7:14 PM PADDED PRODUCTS FINISHER [facility] Blood Venipuncture / Unknown 01/01/2021 3:24 PM PADDED PRODUCTS FINISHER 01/01/2021 3:24 PM PADDED PRODUCTS FINISHER Narrative [facility] - 01/01/2021 7:14 PM PADDED PRODUCTS FINISHER HGB A1C INTERPRETATION NORMAL: <5.7% PRE-DIABETES: 5.7 - 6.4% DIABETES: 6.5% OR GREATER Falsely low A1C measurements can occur when: 1. Anemia and/or hemolytic anemia is present. 2. Hemoglobin variants present. 3. Renal failure. 4. Transfusion of blood product in the last 120 days. We recommend ordering a fructosamine test(CEW3653) to more accurately assess glycemic status if any of the above conditions are present. Raysa Washington [facility] CHEMISTRY ORDERABLES Fin al Result [facility] CLIA# [id number] [address] [place] [address] * COLONOSCOPY REPORT (10/22/2020 12:15 PM PADDED PRODUCTS FINISHER) Narrative Procedure Note Jean Claude Damon MD - 10/22/2020 12:15 PM CST [facility] GI Patient Name: González Don Procedure Date: 10/22/2020 Date of : 1970 Admit Type: Outpatient Age: 49 Attending MD: Jean Claude Damon , Procedure: Colonoscopy Indications: Hematochezia Providers: Jean Claude Damon Referring MD: Nimo Quesada Medicines: Midazolam 3 mg IV, Fentanyl 50 micrograms IV Complications: No immediate complications. Procedure: After I obtained informed consent, the scope was passed under direct vision. Throughout the procedure, the patient's blood pressure, pulse, and oxygen saturations were monitored continuously. The Colonoscope was introduced through the anus and advanced to the terminal ileum, with identification of the appendiceal orifice and IC valve. The colonoscopy was performed without difficulty. The patient tolerated the procedure well. The quality of the bowel preparation was adequate. Estimated Blood Loss: Estimated blood loss was minimal. Findings: A 3 mm polyp was found in the transverse colon. The polyp was pedunculated. The polyp was removed with a cold snare. Resection and retrieval were complete. Multiple diverticula were found in the entire colon. The exam was otherwise without abnormality. The terminal ileum appeared normal. The retroflexed view of the distal rectum and anal verge was normal and showed no anal or rectal abnormalities. Moderate Sedation: Moderate (conscious) sedation was administered by the endoscopy nurse and supervised by the endoscopist. The following parameters were monitored: oxygen saturation, heart rate, blood pressure, respiratory rate, EKG, adequacy of pulmonary ventilation, and response to care. Total physician intraservice time was 13 minutes. Impression: - One 3 mm polyp in the transverse colon, removed with a cold snare. Resected and retrieved. - Diverticulosis in the entire examined colon. - The examination was otherwise normal. - The examined portion of the ileum was normal. - The distal rectum and anal verge are normal on retroflexion view. Recommendation: - Await pathology results. - Repeat colonoscopy date to be determined after pending pathology results are reviewed. Jean Claude Damon, 10/22/2020 12:14:45 PM Number of Addenda: 0 Note Initiated On: 10/22/2020 11:23 AM Scope Withdrawal Time 0 hours 6 minutes 9 seconds Scope In: 12:04:13 PM Scope Out: 12:11:51 PM [address] [place], [place] Jean Claude Damon MD GI PROCEDURE ORDERABLES Fin al Result * (ABNORMAL) LIPID PANEL (05/07/2020 12:58 AM CDT) CHOLESTEROL 144 <200 mg/dL 05/07/2020 1:34 AM CDT [facility] TRIGLYCERIDE 225(H) <150 mg/dL 05/07/2020 1:34 AM CDT [facility] HDL 43 40 - 59 mg/dL 05/07/2020 1:34 AM CDT [facility] LDL CALCULATED 56 <100 mg/dL 05/07/2020 1:34 AM CDT [facility] NON-HDL CHOLESTEROL 101 <130 mg/dL 05/07/2020 1:34 AM T [facility] Blood Venipuncture / Unknown 05/07/2020 12:58 AM CDT 05/07/2020 1:04 AM CDT Narrative [facility] - 05/07/2020 1:34 AM CDT TOTAL CHOLESTEROL mg/dL Desirable <200 Borderline high 200-239 High >=240 TRIGLYCERIDES mg/dL Normal <150 Borderline high 150-199 High 200-499 Very high >=500 HDL CHOLESTEROL mg/dL Low <40 Normal 40-59 Desirable >=60 NON HDL CHOLESTEROL mg/dL Optimal <130 Near Optimal 130-159 Borderline High 160-189 Very High >=190 CALCULATED LDL mg/dL LDL <70, OPTIMAL if have Atherosclerotic cardiovascular disease (ASCVD) or intermediate or higher (>7.5%) 10 year risk of ASCVD including most adults with diabetes. LDL <100, Optimal in adult patients with low (<7.5%) 10 year ASCVD risk LDL 100-160, Suboptimal LDL >160, High LDL >190, Very high ATPIII Guidelines Reference Ranges for Lipid Panels (NCEP/AMA) . Kushal Schmidt MD CHEMISTRY ORDERABLES Final Resu lt Performing Organization Address City/State/[facility] Co de Phone Number [facility] CLIA# [id number] [address] [address] from Last 3 Months or Most Recently Relevant to Health Maintenance Insurance MEDICAID [place] RX [employer]ANS (INTERNAL) [facility] Internal Plans RX INFOCROSSING Medicaid MEDICAID [place] Advance Directives For more information, please contact: [phone] * Full Code (Latest Code Status on File) Date Activated Date Inactivated Comments 02/01/2021 9:52 AM 02/01/2021 3:29 PM * Full Code Date Activated Date Inactivated Comments 12/28/2020 10:48 AM 12/28/2020 1:56 PM * Full Code Date Activated Date Inactivated Comments 10/22/2020 11:25 AM 10/22/2020 2:38 PM * Full Code Date Activated Date Inactivated Comments 08/05/2020 9:48 AM 08/05/2020 2:30 PM * Full Code Date Activated Date Inactivated Comments 04/07/2020 8:07 AM 04/07/2020 8:56 PM Care Teams Tariff Counsel Relationship Specialty Start Date End Date Irineo Duncan Jr., MD [address] [place] [address] [address] [facility] [address] [place] [address] PCP - General Family Practice 06/20/19
--- OUTSIDE RECORDS SUMMARY | 2025-07-17 16:10 | XMS_ITS ---
Author Organization [facility] de Address [address] [place] [address] Phone Care Team Providers Care Turbine Engineer Name Role Phone Perla Maradiaga MD, Irineo Amanda Primary Care Provider [phone] Active Problems Problem Noted Date Diagnosed Date [...] Nausea & vomiting 12/11/2018 Congestive heart failure Current Treatment and Therapy Plans No current plan information found. Past Treatment and Therapy Plans ONCOLOGY TREATMENT Plan Name Start Date Discontinue Date Treatment Medications Discontinue Reason Plan Provider Cycles OP ONC COLON_L V5FU 9 02/19/2021 FLUOROURACIL FOR AMBULATORY HOME INFUSIONfluoruracil (5-FU) injectable syringeleucovorin (WELLCOVORIN) IVPB Therapy Complete Bess Sierra, SHOP TAILOR 12 of 12 cycles started Lifetime Dose Tracking * Chemical Lifetime Dose Automatic Entry Manual Entr y Effective Dose 98 mSv 98 mSv 0 mSv Total DLP 9,527 DLP 9,527 DLP 0 DLP CTDIvol Max 220.5 mGy 220.5 mGy 0 mGy CTDIvol Min 127.2 mGy 127.2 mGy 0 mGy Resolved Problems Problem Noted Date Diagnosed Date Resolved Date Moderate protein-calorie malnutrition 12/13/2018 11/19/2020 Malignant neoplasm of sigmoid colon 12/11/2018 12/26/2018 Cancer Staging:Clinical: Unsigned Pathologic stage from 12/14/2018: pT3, pN0 - Signed by Maria Victoria Trivedi MD on 12/14/2018
--- OUTSIDE RECORDS SUMMARY | 2025-07-17 16:10 | XMS_ITS ---
Author Organization [facility] de Address [address] [facility] [place] [address] Phone Care Team Providers Care Counterintelligence/Humint Specialist Name Role Phone Artem Bliss MD Primary Care Provider [phone] Active Problems Problem Noted Date Diagnosed Date [...] Nausea \T\ vomiting 12/11/2018 Congestive heart failure Current Treatment and Therapy Plans No current plan information found. Other Current Plans OP ONC SODIUM FERRIC GLUCONATE COMPLEX (FERRLECIT) 125 MG WEEKLY X 8* Plan Start Date:02/07/2025 Plan Provider:Debra Cast FNP Linked Problems Iron deficiency anemia secon marino to inadequate dietary iron intake Treatment Medications No medications scheduled. Past Treatment and Therapy Plans Lifetime Dose Tracking * Chemical Lifetime Dose Automatic Entry Manual Entr y Effective Dose 173.6 mSv 75.6 mSv 98 mSv Total DLP 18,944 DLP 9,417 DLP 9,527 DLP CTDIvol Max 452.46 mGy 231.96 mGy 220.5 mGy CTDIvol Min 277.44 mGy 150.24 mGy 127.2 mGy Resolved Problems Problem Noted Date Diagnosed Date Resolved Date Adenocarcinoma, colon 12/17/20182024
--- NOTE | 2025-07-17 16:35 | CTR_ITS ---
PROCEDURE INFORMATION: Exam: CT Abdomen And Pelvis With Contrast Exam date and time: 07/17/2025 5:40 PM Age: 54 years old Clinical indication: Abdominal pain; Generalized; Additional info: Upper abdominal pain/diarrhea/hx of cancer TECHNIQUE: Imaging protocol: Computed tomography of the abdomen and pelvis with contrast. Radiation optimization: All CT scans at this facility use at least one of these dose optimization techniques: automated exposure control; mA and/or kV adjustment per patient size (includes targeted exams where dose is matched to clinical indication); or iterative reconstruction. Contrast material: OMNIPAQUE 350; Contrast volume: 100 ml; Contrast route: INTRAVENOUS (IV); COMPARISON: No relevant prior studies available. RADIATION DOSE METRICS: Total DLP (mGy-cm): 949.23 FINDINGS: Lungs: Lung bases are clear. Pleural spaces: 5 cm fat containing Bochdalek's hernia is noted medially in the left costophrenic sulcus. Liver: The liver is diffusely decreased in density, compatible with hepatic steatosis. Gallbladder and biliary ducts: The gallbladder is normal. There is no evidence of biliary ductal dilation. Pancreas: The pancreas is normal. No mass. Spleen: The spleen is normal. Adrenal glands: The adrenal glands are normal. Kidneys and ureters: 19 mm left renal cyst. No solid renal mass. No hydronephrosis or hydroureter. Stomach and bowel: Bowel caliber is normal. No paracolonic inflammatory changes. The stomach is mildly distended with ingested material. Appendix: Normal appendix. Intraperitoneal space: No significant peritoneal free fluid. No free peritoneal air. Vasculature: Aortic caliber is normal. Lymph nodes: No lymph node enlargement. Urinary bladder: No focal wall thickening of the urinary bladder. Reproductive: Slight prostate enlargement, which protrudes into the bladder base. Bones/joints: A posterior metallic fixation device is noted at the L5-S1 level. 7 mm of L5 anterolisthesis. No suspicious osseous lesions. Soft tissues: 5 cm defect is noted in the lateral right internal oblique muscle. 15 cm focus omental fat herniates through the defect, but underlies the external oblique muscle. Small fat containing paraumbilical hernia. Diastasis of the upper rectus, with a postsurgical appearance. CT/CT abdomen pelvis w con* [id number] IMPRESSION: 1. Mild distension of the stomach with ingested material, without other gastric abnormality noted. If there is concern for gastric outlet obstruction, upper GI series should be obtained. 2. Several abdominal wall hernias are noted, including a large fat containing hernia interposed between the right lateral internal and external oblique muscles. 3. No other acute disease identified in the abdomen or pelvis. COMMENTS: Consistent with the [employer]'s Incidental Findings Committee white paper (J Am Ziyad Radiol 2018): Any incidental renal lesion less than 1 cm or classified as too small to characterize, or any incidental cystic renal lesion characterized as simple-appearing, is likely benign. No follow-up imaging is recommended for these lesions per consensus recommendations based on imaging criteria.
--- NOTE | 2025-07-17 16:41 | ED_ITS ---
HPI - Abdominal Pain 2 General: Chief Complaint: Abdominal Pain Stated Complaint: abd pain x 2 days Time Seen by Provider: 07/17/25 16:04 Source: patient Mode of arrival: ambulatory Limitations: no limitations History of Present Illness: Patient is a 54-year-old male who presents the emergency department by ambulance complaining of upper abdominal pain for the past 2 days. Reports a history of colon cancer as well as congestive heart failure. States the pain began all of a sudden, this has spread down into his lower abdomen, notes that the colon cancer resulted in him having colon resection in 2019. He is not reporting any nausea or vomiting, but is noting diarrhea and states that when he has diarrhea this makes the pain worse. Denies history of diverticulitis or diverticulosis. No fevers are reported. Has not taken anything for symptoms but is requesting something for pain at this time. Describes the pain as a sharp and fullness sensation in the abdomen, denies history of kidney stones, no hematuria but states that when he starts his stream he notices that there is some pain. No constipation reported. No chest pain or shortness of breath. No bright red blood per rectum or melena. MD elicited complaint: abdominal pain Pertinent past history: other (colon cancer) Onset (ago): day(s) (2) Pain Consistency: constant Location: Other (upper) Severity: severe Quality: stabbing and fullness Radiation: other (lower) Exacerbating factors: nothing Relieving factors: nothing Associated Symptoms: Reports diarrhea and dysuria; Denies bloating, change in stool character, chills, constipation, fever(s), hematochezia, nausea and vomiting Related Data Allergies Allergy/AdvReac Type Severity Reaction Status Date / Time bupropion (From Wellbutrin) Allergy Unknown Verified 07/17/25 16:16 Review of Systems 2 General: Reports: 10 or more systems reviewed and unremarkable except in HPI and below Const: Denies: fever(s), chills, change in appetite, change in weight or diaphoresis ENMT: Denies: throat pain or hoarseness Card: Denies: chest pain, palpitations or lightheadedness Resp: Denies: dyspnea, productive cough or wheezing GI: Reports: abdominal pain and diarrhea; Denies: nausea, vomiting, constipation, bloating, change in stool character or hematochezia : Reports: dysuria; Denies: flank pain, difficulty urinating, urinary frequency or urinary urgency Musc: Denies: neck pain or back pain Skin/Breast: Denies: rash or new lesions Neuro: Denies: headache(s) or dizziness Physical Exam 2 Const: COMMON NORMALS: no acute distress, patient oriented x3, no limitations, healthy appearing, alert and well nourished GENERAL APPEARANCE: cooperative and comfortable NUTRITIONAL APPEARANCE: obese ORIENTATION/CONSCIOUSNESS: Y es awake OTHER: nontoxic Neck/C-Spine: COMMON NORMALS: full ROM, supple, no meningeal signs and no JVD Resp: COMMON NORMALS: normal respiratory effort, No retractions, No use of accessory muscles and clear to auscultation bilaterally AUSCULTATION: clear to auscultation bilaterally, no crackles, no rales, no rhonchi and no wheezes Cardio: COMMON NORMALS: no JVD, regular rate, regular rhythm, No gallops present (Cardio), No clicks present (Cardio), No murmurs present (Cardio), No rub (Cardio) and Peripheral pulses 2+ throughout RATE: regular rate R HYTHM: regular rhythm PERIPHERAL PULSES: Peripheral pulses 2+ throughout GI: COMMON NORMALS: Normal to inspection, nondistended, normoactive bowel sounds present, Soft to palpation, No hepatosplenomegaly present and no masses AUSCULTATION: Yes normoactive bowel sounds PALPATION: Yes Soft to palpation, Yes Tenderness to palpation present (GI) Details: LUQ and RUQ, No Guarding due to palpation present (GI), No Rigid due to palpation and Yes No hepatosplenomegaly present RECTAL EXAM: Yes deferred Extremity: COMMON NORMALS: normal to inspection and full ROM Neuro: COMMON NORMALS: patient oriented x3, moves all extremities, no focal motor deficits and no sensory deficits noted SENSORIUM/ORIENTATION: Yes alert MENINGEAL SIGNS: Yes no meningeal signs Psych: COMMON NORMALS: mental status grossly normal, cooperative and speech normal SPEECH: Yes normal speech Skin: COMMON NORMALS: no rashes or lesions noted GENERAL SKIN EXAM: no rashes or lesions noted Course 2 Vital Signs: Vital signs: Vital Signs Temperature 97.9 F 07/17/25 16:09 Pulse Rate 66 07/17/25 18:30 Respiratory Rate 17 07/17/25 17:02 Blood Pressure 96/67 07/17/25 18:30 Pulse Oximetry 94 07/17/25 18:30 Oxygen Delivery Me thod Room Air 07/17/25 18:30 MDM - Abdominal Pain Medical Decision Making Patient presenting by ambulance with reports of abdominal pain and diarrhea, history of colon resection status post colon cancer surgery. Stable on arrival, vitals have been stable blood pressure minimally soft but patient states this is what it normally runs. Lab work obtained including CBC and CMP which was unremarkable. Urinalysis was negative. COVID swab negative, lipase negative. EKG obtained due to reports of pain being somewhat epigastric, this did not demonstrate any acute ST segment changes or concern for ACS by this account. Abdominal pelvis CT does not reveal any acute abnormality or expansion for his pain, there were nonspecific findings such as several hernias that unlikely to cause his pain, but could be related to this. Could be a viral gastroenteritis with his reports of diarrhea, otherwise I do not see a reason to put him in the hospital and have emergent colonoscopy at this time. He does have follow-up appointment with primary care early next week, told to keep this in the meantime return with any new or worsening symptoms. Patient agrees to this plan, pain controlled morphine here in the emergency department. Lab Data 07/17/25 16:50 07/17/25 16:50 Labs/Radiology: Radiology Impressions Abdomen/Pelvis CT 07/17/25 16:35 IMPRESSION: 1. Mild distension of the stomach with ingested material, without other gastric abnormality noted. If there is concern for gastric outlet obstruction, upper GI series should be obtained. 2. Several abdominal wall hernias are noted, including a large fat containing hernia interposed between the right lateral internal and external oblique muscles. 3. No other acute disease identified in the abdomen or pelvis. COMMENTS: Consistent with the [employer]'s Incidental Findings Committee white paper (J Am Ziyad Radiol 2018): Any incidental renal lesion less than 1 cm or classified as too small to characterize, or any incidental cystic renal lesion characterized as simple-appearing, is likely benign. No follow-up imaging is recommended for these lesions per consensus recommendations based on imaging criteria. Laboratory Results WBC 5.15 10^3/uL (3.29-11.43) 07/17/25 16:50 RBC 4.66 10^6/uL (3.85-5.65) 07/17/25 16:50 Hgb 14.00 g/dL (11.27-16.99) 07/17/25 16:50 Hct 41.4 % (37-53) 07/17/25 16:50 MCV 88.8 fl (82-101) 07/17/25 16:50 MCH 30.0 pg (27-33) 07/17/25 16:50 MCHC 33.8 g/dL (30-55) 07/17/25 16:50 RDW 13.5 % (12.1-15.1) 07/17/25 16:50 Plt Count 163 10^3/cmm (157-399) 07/17/25 16:50 MPV 10.5 fL (7.4-10.4) H 07/17/25 16:50 Neut % (Auto) 62.7 % 07/17/25 16:50 Lymph % (Auto) 28.5 % 07/17/25 16:50 [place] % (Auto) 7.0 % 07/17/25 16:50 Eos % (Auto) 1.2 % 07/17/25 16:50 Baso % (Auto) 0.4 % 07/17/25 16:50 Neut # (Auto) 3.23 10^3/uL (1.8-7.7) 07/17/25 16:50 Lymph # (Auto) 1.5 10^3/uL (0.8-4.8) 07/17/25 16:50 [place] # (Auto) 0.4 10^3/uL (0.2-0.9) 07/17/25 16:50 Eos # (Auto) 0.1 10^3/uL (0.0-0.8) 07/17/25 16:50 Baso # (Auto) 0.0 10^3/uL (0.0-0.1) 07/17/25 16:50 Nucleated RBC % (auto) 0 % 07/17/25 16:50 Nucleated RBCs # 0.0 /100WBC 07/17/25 16:50 Sodium 142 mmol/L (136-145) 07/17/25 16:50 Potassium 3.5 mmol/L (3.5-5.1) 07/17/25 16:50 Chloride 109 mmol/L (98-107) H 07/17/25 16:50 Carbon Dioxide 23 mmol/L (22-29) 07/17/25 16:50 Anion Gap 13.5 (5-19) 07/17/25 16:50 BUN 10 mg/dL (6-20) 07/17/25 16:50 Creatinine 0.8 mg/dL (0.7-1.2) 07/17/25 16:50 GFR Calculation 101.5 mL/min (90-130) 07/17/25 16:50 Glucose 103 mg/dL (65-115) 07/17/25 16:50 Calculated Osmolality 293 mOsm/kg (285-295) 07/17/25 16:50 Calcium 7.7 mg/dL (8.5-10.5) L 07/17/25 16:50 Total Bilirubin 0.3 mg/dL (0.15-1.2) 07/17/25 16:50 AST 17 U/L (0-40) 07/17/25 16:50 ALT 29 U/L (0-41) 07/17/25 16:50 Alkaline Phosphatase 95 U/L (40-130) 07/17/25 16:50 Total Protein 6.4 g/dL (6.6-8.7) L 07/17/25 16:50 Albumin 3.7 g/dL (3.5-5.2) 07/17/25 16:50 Globulin 2.7 g/dL (1.3-4.6) 07/17/25 16:50 Lipase 42 U/L (13-60) 07/17/25 16:50 Urine Color Yellow (Yellow) 07/17/25 18:00 Urine Appearance Clear (CLEAR) 07/17/25 18:00 Urine pH 5.5 (5-7) 07/17/25 18:00 Ur Specific [place] 1.052 (1.005-1.030) H 07/17/25 18:00 Urine Protein Negative (Negative) 07/17/25 18:00 Urine Glucose (UA) 3+ (Normal) H 07/17/25 18:00 Urine Ketones Trace (Negative) 07/17/25 18:00 Urine Blood Negative (Negative) 07/17/25 18:00 Urine Nitrate Negative (Negative) 07/17/25 18:00 Urine Bilirubin Negative (Negative) 07/17/25 18:00 Urine Urobilinogen 1.0 mg/dL (Negative) 07/17/25 18:00 Ur Leukocyte Esterase Negative (Negative) 07/17/25 18:00 Urine RBC 0-2 /hpf (0-2) 07/17/25 18:00 Urine WBC 0-5 /hpf (0-5) 07/17/25 18:00 Ur Squamous Epith Cells 0-5 /hpf (0-5) 07/17/25 18:00 Amorphous Sediment Not Reportable 07/17/25 18:00 Urine Bacteria None seen /hpf (NONE) 07/17/25 18:00 Hyaline Casts 0.81 /lpf 07/17/25 18:00 Influenza A (PCR) Negative (Negative) 07/17/25 17:28 Influenza Type B (PCR) Negative (Negative) 07/17/25 17:28 RSV (PCR) Negative (Negative) 07/17/25 17:28 SARS-CoV-2 (PCR) Negative (Negative) 07/17/25 17:28 All radiology interpretation(s) finalized by discharge Discharge Plan Discharge Patient Disposition: Home Clinical Impression: Abdominal pain Qualifiers: Abdominal location: generalized Qualified Code(s): R10.84 - Generalized abdominal pain Condition: Stable Discharge Orders: Discharge ED (Routine); Ordered 07/17/25 Ordered By: Alejandro Calix Patient Instructions: Abdominal Pain (ED), Opioid Safety, Pain Management, Patient Portal & Wilver Instructions Activity Restrictions/Additional Instructions: Abdominal Pain Discharge Discharge Instructions: Acute Abdominal Pain (No Acute Findings on CT) Summary of Evaluation: The patient presented with acute abdominal pain. Laboratory studies and computed tomography (CT) imaging did not reveal any acute or surgical pathology. The patient is hemodynamically stable and has adequate pain control. Diagnosis: Non-specific abdominal pain, with no evidence of acute intra-abdominal pathology on current evaluation.[1] https://pubmed.ncbi.nlm.nih.gov/78206373 [2] https://Rodin Therapeuticshub.UPSIDO.com.com/retrieve/pii/M1211-86015(60)97179-9 [3] https://pubmed.ncbi.nlm.nih.gov/02311891 Instructions: - Activity: Resume normal activities as tolerated. Avoid strenuous activity if pain persists. - Diet: Advance diet as tolerated. Begin with clear liquids if nausea is present, then progress to a regular diet as symptoms allow. - Pain Management: Use acetaminophen or nonsteroidal anti-inflammatory drugs (NSAIDs) for pain control as needed, unless contraindicated. Judicious use of analgesics is supported and does not mask serious pathology or delay diagnosis.[4] https://www.nejm.org/doi/full/10.1056/ZGRSlc5136355 Avoid opioid medications unless specifically prescribed. - Monitoring and Red Flags: Return to the emergency department immediately if any of the following occur: - Severe, worsening, or persistent abdominal pain - New or persistent vomiting - Inability to tolerate oral intake - Fever (>38?C/100.4?F) - Hematemesis (vomiting blood) or melena (black, tarry stools) - Syncope or signs of hemodynamic instability (e.g., dizziness, palpitations, hypotension) - Jaundice or new-onset confusion - Follow-Up: Schedule a follow-up appointment with the primary care provider on Monday for re-evaluation. Reassessment is important, as a subset of patients with non- specific abdominal pain may have evolving or initially occult pathology that becomes apparent on follow-up.[5] https://pubmed.ncbi.nlm.nih.gov/32941502 If symptoms worsen before the scheduled appointment, seek care sooner. - Additional Instructions: Take all prescribed medications as directed. Maintain adequate hydration. Keep a record of any new or changing symptoms to discuss at follow-up. Clinical Rationale: Most cases of non-specific abdominal pain with negative laboratory and imaging findings are self-limited and do not require hospitalization or surgical intervention.[1] https://pubmed.ncbi.nlm.nih.gov/40000242 [2] https://[employer]hub.UPSIDO.com.com/retrieve/pii/J9362-1844(62)96151-9 [3] https://pubmed.ncbi.nlm.nih.gov/94666485 However, a small proportion may develop clinically significant pathology on re-evaluation, underscoring the importance of close outpatient follow-up and clear return precautions.[5] https://pubmed.ncbi.nlm.nih.gov/55708480 References: - [employer], 202: Evaluation and diagnosis of acute abdominal pain in adults. [1] https://pubmed.ncbi.nlm.nih.gov/53707672 - Emergency Medicine Journal, 2018: Efficacy of scheduled return visits for non- specific abdominal pain. [5] https://pubmed.ncbi.nlm.nih.gov/47152396 - [employer] Appropriateness Criteria, 2018: Imaging in acute nonlocalized abdominal pain. [2] https://Local [employer] Launch/retrieve/pii/I1969-9629(96)41754-2 - World Journal of Surgery, 2022: Outcomes in non-surgical abdominal pain admissions. [3] https://pubmed.ncbi.nlm.nih.gov/95633781 - [place] [employer] of Medicine, 2023: Analgesia in acute abdominal pain.[4] https://www.nejm.org/doi/full/10.1056/UUDQgu9959868 References * Acute Abdominal Pain in Adults: Evaluation and Diagnosis https://pubmed.ncbi.nlm.nih.gov/94218956 . Jermaine KS, German MK, Clifford HB. [employer]. 2022;107(6):585-596. * ACR Appropriateness Criteria Acute Nonlocalized?Abdominal Pain https://Signaturit.Prediculous/retrieve/pii/I8167-1985(20)73089-8 . Scheirey CD, Cooley KJ, Apurva JA, et al. Journal of the [employer] [employer] : JACR. 2018;15(11S):T229-J655. doi:10.1016/j.jacr.2018.09.010. * Inefficient Admissions for Abdominal Pain Under an Acute General Surgical Unit https://pubmed.ncbi.nlm.nih.gov/63944164 . Cristóbal Y, Sebastien S, Carol L, Cy C, Antoinette R. World Journal of Surgery. 2022;47(10):3282-9103. doi:10.1007/e77148-247-96738-5. * Acute Abdomen in the Modern Era https://www.nejm.org/doi/full/10.1056/HIEJbk9139234 . Husam SO, Didi OC. The [place] Journal of Medicine. 2023;391(1):60-67. doi:10.1056/QECQgn1010253. * Efficacy of Scheduled Return Visits for Emergency Department Patients With Non-Specific Abdominal Pain https://pubmed.ncbi.nlm.nih.gov/56172708 . Vikram AE, Maddy ARCOS, Johnson M, Acosta E. Emergency Medicine Journal : EMJ. 2018;35(8):499-506. doi:10.1136/bcsefua-9196-193574. Print Language: Mexican Coding Level of Care Code ED Veneer Sawyer for Abby Washington
[2025-07-17 16:57] LABS: Hematocrit 41.4 % (37-53); Hemoglobin 14.00 g/dL (11.27-16.99); Mean Corpuscular HGB Conc 33.8 g/dL (30-55); Mean Corpuscular Hemoglobin 30.0 pg (27-33); Mean Corpuscular Volume 88.8 fl (82-101); Nucleated Red Blood Cells % 0 %; Platelet Count 163 10^3/cmm (157-399); Red Blood Count 4.66 10^6/uL (3.85-5.65); White Blood Count 5.15 10^3/uL (3.29-11.43)
[2025-07-17 17:02] VITALS: RESP 17; O2SAT 95
[2025-07-17] MEDS: morphine 4 mg/mL SDV 1 mL IVP (17:02)
[2025-07-17 17:15] LABS: Alanine Aminotransferase 29 U/L (0-41); Albumin Level 3.7 g/dL (3.5-5.2); Alkaline Phosphatase 95 U/L (40-130); Anion Gap 13.5 (5-19); Aspartate Amino Transferase 17 U/L (0-40); Blood Urea Nitrogen 10 mg/dL (6-20); Calcium 7.7 mg/dL (8.5-10.5); Carbon Dioxide 23 mmol/L (22-29); Chloride 109 mmol/L (98-107); Creatinine Clr Calc Pharmacy 110.3691; Globulin 2.7 g/dL (1.3-4.6); Glucose 103 mg/dL (65-115); Lipase 42 U/L (13-60); Osmolality Calculated 293 mOsm/kg (285-295); Potassium 3.5 mmol/L (3.5-5.1); Sodium 142 mmol/L (136-145); Total Protein 6.4 g/dL (6.6-8.7)
[2025-07-17 17:18] VITALS: PULSE 70; O2SAT 97
--- NOTE | 2025-07-17 17:19 | ECG_ITS ---
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: : 1970 Requested By: Alejandro Garrison Order Number: [id number] Amanda MD: KJ POWER Measurements Intervals [place] Rate: 99 P: 35 NC: 155 QRS: -30 QRSD: 109 T: 33 QT: 405 QTc: 520 Interpretive Statements SINUS RHYTHM WITH OCCASIONAL VENTRICULAR PREMATURE COMPLEXES MINIMAL VOLTAGE CRITERIA FOR LVH, CONSIDER NORMAL VARIANT [MEETS CRITERIA IN ONE OF: R(aVL), S(V1), R(V5), R(V5/V6)+S(V1)] POSSIBLE LATERAL MYOCARDIAL INFARCTION , OF INDETERMINATE AGE [30 ms Q WAVE IN I/aVL/V5/V6] No previous ECG available for comparison Electronically Signed On 07-18-2025 20:16:47 CDT by KJ POWER [email or web address]
[2025-07-17] MEDS: iohexol 350 mg/mL 500 mL Btl (per mL) IV (17:45)
[2025-07-17 18:26] LABS: Glucose Urine UA 3+ (Normal); Nitrate Urine Negative (Negative)
[2025-07-17 18:30] VITALS: BP 96/67; PULSE 66; O2SAT 94
[2025-07-17 18:30] LABS: Add Urine Microscopic? YES
[2025-07-17 18:35] LABS: Specific Gravity, Urine 1.052 (1.005-1.030)
[2025-07-17 18:39] LABS: Respiratory Syncytial Virus Ce NEGATIVE (Negative); SARS-CoV-2 PCR NEGATIVE (Negative)
== END 2025-07-17 20:33 | disposition home or self-care (01) ==
PROVIDERS: Emergency Provider Physician Assistant
DX: R10.84 Generalized abdominal pain (principal); Z11.52 Encounter for screening for COVID-19; I50.9 Heart failure, unspecified; Z85.038 Personal history of other malignant neoplasm of large intestine
CPT/HCPCS: 74177; 80053; 81001; 83690; 85025; 87637; 93005; 96374; 99285; J2270